=== PATIENT | female | born 1955 | race Asian ===

== ENCOUNTER 2019-09-03 09:49 | Emergency (ER) | payer MEDICAID, OTHER ==
[~2019-09-03] VITALS: Ht 157.5 cm; Wt 59.0 kg
[2019-09-03] MEDS ORDERED: IPRATROPIUM BROM 0.5 MG/2.5ML INH SOL HHN ONE (10:30)
[2019-09-03] MEDS ORDERED: ALBUTEROL SULF 2.5 MG/0.5ML(0.5%) NEB SOLN HHN ONE (10:30)
[2019-09-03 11:37] LABS: Basophils # (auto) 0 uL; Basophils % (auto) 0.4 % (0.0-2.0); Eosinophils # (auto) 0 uL; Hematocrit 30.6 % (36.0-46.0); Hemoglobin 10.8 g/dL (12.2-16.2); Lymphocytes # (auto) 0.4 uL; Lymphocytes % (auto) 8.4 % (10.0-50.0); Mean Corpuscular Hemoglobin 31.9 pg (28.0-32.0); Mean Corpuscular Hgb Conc. 35.3 g/dL (32.0-36.0); Mean Corpuscular Volume 90.1 fL (80.0-100.0); Monocytes # (auto) 0.4 uL; Monocytes % (auto) 8.6 % (0.0-12.0); Neutrophils # (auto) 4.1 uL; Neutrophils % (auto) 82.6 % (37.0-80.0); Platelet Count (auto) 169 10^3/uL (140-450); Red Blood Cells 3.39 10^6/uL (4.0-5.20); Red Cell Distribution Width 12.3 % (11.8-14.3)
[2019-09-03 11:56] LABS: Potassium 3.3 mmol/L (3.5-5.1)
[2019-09-03 12:03] LABS: BUN/Creatinine Ratio 7.6
[2019-09-03 12:04] LABS: Bilirubin, Total 0.4 mg/dL (0.2-1.0); Calcium 8.2 mg/dL (8.5-10.1); Total Protein 7.5 g/dL (6.4-8.2)
[2019-09-03 13:52] VITALS: BP 112/61
== END 2019-09-03 14:54 | disposition home or self-care (01) ==
LOC: ER 09:49 → EDBD 09:49 → ER 14:54
DX: J20.9 Acute bronchitis, unspecified (principal); R19.7 Diarrhea, unspecified; C78.00 Secondary malignant neoplasm of unspecified lung
CPT/HCPCS: 36415; 71045; 80053; 85025; 94640; 99284; J7611; J7644

== ENCOUNTER 2022-01-13 08:47 | Inpatient (IN) | payer MEDICARE, MEDICAID ==
[~2022-01-13] VITALS: Ht 162.6 cm; Wt 87.0 kg
[2022-01-13] MEDS ORDERED: SODIUM CHLORIDE 0.9% 1,000 ML IV ONE ×2 (10:00)
[2022-01-13 10:17] LABS: Basophils # (auto) 0 10 ^3/uL (0-0.2); Basophils % (auto) 0.2 % (0.0-2.0); Eosinophils # (auto) 0 10 ^3/uL (0-0.8); Eosinophils % (auto) 0.2 % (0.0-7.0); Hematocrit 32.4 % (36.0-46.0); Hemoglobin 11.3 g/dL (12.2-16.2); Lymphocytes # (auto) 0.5 10 ^3/uL (0.4-5.4); Lymphocytes % (auto) 11.3 % (10.0-50.0); Mean Corpuscular Hemoglobin 31.5 pg (28.0-32.0); Mean Corpuscular Volume 89.9 fL (80.0-100.0); Monocytes # (auto) 0.4 10 ^3/uL (0-1.3); Monocytes % (auto) 8.1 % (0.0-12.0); Neutrophils # (auto) 3.6 10 ^3/uL (1.6-8.6); Neutrophils % (auto) 80.2 % (37.0-80.0); Red Cell Distribution Width 12.8 % (11.8-14.3); White Blood Cell 4.4 10^3/uL (4.4-10.8)
[2022-01-13 10:40] LABS: Calcium 7.2 mg/dL (8.5-10.1); Potassium 3.3 mmol/L (3.5-5.1)
[2022-01-13 10:43] LABS: BUN/Creatinine Ratio 14.5; Bilirubin, Total 0.4 mg/dL (0.2-1.0); Total Protein 7.2 g/dL (6.4-8.2)
[2022-01-13 11:57] LABS: Urine Bacteria NONE SEEN /hpf (None Seen); Urine Blood Negative /uL (Negative); Urine Mucus FEW (None Seen); Urine Specific Gravity 1.008 (1.001-1.035); Urine WBC 1 /hpf (0 - 5)
[2022-01-13] MEDS ORDERED: cefTRIAXone 1GM/50ML D5W 50 ML IV ONE (12:00)
[2022-01-13] MEDS ORDERED: metroNIDAZOLE 500MG/100ML 100 ML IV ONE (12:00)
[2022-01-13] MEDS ORDERED: ALBUTEROL SULF HFA 90MCG INH 200DOSE IN PRN (13:30)
[2022-01-13] MEDS ORDERED: ACETAMINOPHEN 500 MG TAB PO PRN (13:30)
[2022-01-13] MEDS: SODIUM CHLORIDE 0.9% 1,000 ML IV SCH (13:32)
[2022-01-13 13:34] LABS: INR 1.01 (0.9-1.15)
[2022-01-13 14:14] LABS: Cholesterol 104 mg/dL (< 200); Triglycerides 66 mg/dL (< 150)
[2022-01-13 14:16] LABS: CRP High Sensitivity 0.204 mg/dL (< 0.3); HDL Cholesterol 42 mg/dL (40-59); LDL Cholesterol 60 mg/dL (< 100); Magnesium 1.6 mg/dL (1.6-2.6)
[2022-01-13 14:27] LABS: Thyroid Stimulating Hormone 1.71 uIU/mL (0.358-3.74)
[2022-01-13] MEDS ORDERED: AFAT20TA PO (14:49)
[2022-01-13] MEDS ORDERED: LETR2.5T6 PO (14:50)
[2022-01-13] MEDS ORDERED: POTASSIUM CHLORIDE 20 MEQ, LIDOCAINE 1% (LOCAL ANESTH.) 2 ML in SODIUM CHL 0.9% 100 ML IV ONE (16:15)
[2022-01-13] MEDS ORDERED: MAGNESIUM SULFATE 1GM/100ML 100 ML IV ONE (16:15)
[2022-01-13 17:00] VITALS: BP 156/92
[2022-01-13] MEDS ORDERED: ENTE1TAB12 PO (17:04)
[2022-01-13] MEDS: BARACLUDE PO SCH (21:26)
[2022-01-13] MEDS: metroNIDAZOLE 500MG/100ML 100 ML IV SCH (21:26)
[2022-01-13] MEDS: LETROZOLE 2.5 MG TABLET PO SCH (21:27)
[2022-01-13 22:00] VITALS: BP 145/73
[2022-01-13] MEDS ORDERED: GILOTRIF 40 MG PO SCH (22:00)
[2022-01-14] MEDS: SODIUM CHLORIDE 0.9% 1,000 ML IV SCH ×2 (02:23→15:26)
[2022-01-14 05:00] VITALS: BP 144/89
[2022-01-14] MEDS: metroNIDAZOLE 500MG/100ML 100 ML IV SCH (05:48)
[2022-01-14 06:09] LABS: Basophils # (auto) 0 10 ^3/uL (0-0.2); Basophils % (auto) 0.3 % (0.0-2.0); Eosinophils # (auto) 0 10 ^3/uL (0-0.8); Eosinophils % (auto) 0.1 % (0.0-7.0); Hematocrit 34.5 % (36.0-46.0); Hemoglobin 12.3 g/dL (12.2-16.2); Lymphocytes % (auto) 25.3 % (10.0-50.0); Mean Corpuscular Hemoglobin 31.7 pg (28.0-32.0); Mean Corpuscular Hgb Conc. 35.6 g/dL (32.0-36.0); Mean Corpuscular Volume 89.1 fL (80.0-100.0); Monocytes # (auto) 0.4 10 ^3/uL (0-1.3); Monocytes % (auto) 9.7 % (0.0-12.0); Neutrophils # (auto) 2.5 10 ^3/uL (1.6-8.6); Neutrophils % (auto) 64.6 % (37.0-80.0); Red Blood Cells 3.87 10^6/uL (4.0-5.20); Red Cell Distribution Width 12.8 % (11.8-14.3); White Blood Cell 3.9 10^3/uL (4.4-10.8)
[2022-01-14 06:37] LABS: Albumin 3.2 g/dL (3.4-5.0); Calcium 7.5 mg/dL (8.5-10.1); Potassium 3.5 mmol/L (3.5-5.1)
[2022-01-14 06:42] LABS: BUN/Creatinine Ratio 11.8; Bilirubin, Total 0.3 mg/dL (0.2-1.0); Total Protein 7.5 g/dL (6.4-8.2)
[2022-01-14] MEDS ORDERED: DexAMETHasone SOD PHOS 10MG/1ML VIAL INJ IV SCH (10:00)
[2022-01-14] MEDS ORDERED: ENOXAPARIN SOD 40 MG/0.4 ML SYRINGE SC SCH (10:00)
[2022-01-14] MEDS: AZITHROMYCIN 500MG/ 250ML 250 ML IV SCH (11:05)
[2022-01-14] MEDS: ASCORBIC ACID 1,000 MG TAB PO SCH (11:05)
[2022-01-14] MEDS: CHOLECALCIFEROL (VITD3) 2,000 UNIT CAP/TAB PO SCH (11:05)
[2022-01-14] MEDS ORDERED: PANTOPRAZOLE 40 MG/10 ML VIAL INJ IV ONE (12:15)
[2022-01-14 12:30] VITALS: BP 151/67
[2022-01-14 16:36] VITALS: BP 124/68
[2022-01-14] MEDS: GILOTRIF 40 MG PO SCH (18:14)
[2022-01-14 20:00] VITALS: BP 101/64
[2022-01-14 22:00] VITALS: BP 101/64
[2022-01-14] MEDS: LETROZOLE 2.5 MG TABLET PO SCH (22:09)
[2022-01-14] MEDS: BARACLUDE PO SCH (22:09)
[2022-01-15 05:00] VITALS: BP 139/61
[2022-01-15] MEDS: SODIUM CHLORIDE 0.9% 1,000 ML IV SCH ×2 (05:19→21:43)
[2022-01-15 08:27] LABS: BUN/Creatinine Ratio 10.5; Calcium 7.4 mg/dL (8.5-10.1); Potassium 3.3 mmol/L (3.5-5.1)
[2022-01-15 09:00] VITALS: BP 117/69
[2022-01-15] MEDS ORDERED: PANTOPRAZOLE 40 MG/10 ML VIAL INJ IV SCH (10:00)
[2022-01-15] MEDS: AZITHROMYCIN 500MG/ 250ML 250 ML IV SCH (10:41)
[2022-01-15] MEDS: ASCORBIC ACID 1,000 MG TAB PO SCH (10:41)
[2022-01-15] MEDS: CHOLECALCIFEROL (VITD3) 2,000 UNIT CAP/TAB PO SCH (10:42)
[2022-01-15] MEDS ORDERED: POTASSIUM CHL 20 Meq TABLET PO ONE (12:00)
[2022-01-15] MEDS: levoFLOXacin 500 MG TAB PO SCH (12:50)
[2022-01-15 13:00] VITALS: BP 124/69
[2022-01-15] MEDS: metroNIDAZOLE 500 MG TAB PO SCH ×2 (13:54→21:44)
[2022-01-15 16:48] VITALS: BP 111/55
[2022-01-15] MEDS: GILOTRIF 40 MG PO SCH (17:30)
[2022-01-15] MEDS: BARACLUDE PO SCH (21:44)
[2022-01-15] MEDS: LETROZOLE 2.5 MG TABLET PO SCH (21:44)
[2022-01-15 22:00] VITALS: BP 109/67
[2022-01-16 05:00] VITALS: BP 104/76
[2022-01-16] MEDS: metroNIDAZOLE 500 MG TAB PO SCH (05:48)
[2022-01-16 08:42] LABS: BUN/Creatinine Ratio 8.9; Calcium 7.4 mg/dL (8.5-10.1)
[2022-01-16 08:54] VITALS: BP 122/71
[2022-01-16 08:56] VITALS: BP 129/57
[2022-01-16] MEDS: levoFLOXacin 500 MG TAB PO SCH (09:13)
[2022-01-16] MEDS: ASCORBIC ACID 1,000 MG TAB PO SCH (09:13)
[2022-01-16] MEDS: CHOLECALCIFEROL (VITD3) 2,000 UNIT CAP/TAB PO SCH (09:13)
[2022-01-16] MEDS ORDERED: FLORASTOR (S. BOULARDII) 250 MG CAP PO SCH (10:00)
[2022-01-16] MEDS ORDERED: MET500T PO (10:12)
[2022-01-16] MEDS ORDERED: LEVO-28 PO (10:12)
== END 2022-01-16 11:54 | disposition home or self-care (01) | DRG 391 ==
LOC: EDBD 08:47 → ER 08:47 → EAST 13:22
PROVIDERS: ADMIT Registered Nurse; ATTEND Internal Medicine
DX: K52.9 Noninfective gastroenteritis and colitis, unspecified (principal); U07.1 COVID-19; C34.90 Malignant neoplasm of unspecified part of unspecified bronchus or lung; E87.1 Hypo-osmolality and hyponatremia; I12.9 Hypertensive chronic kidney disease with stage 1 through stage 4 chronic kidney disease, or unspecified chronic kidney disease; D64.9 Anemia, unspecified; N18.2 Chronic kidney disease, stage 2 (mild); E87.6 Hypokalemia; E86.0 Dehydration; Z85.118 Personal history of other malignant neoplasm of bronchus and lung; Z85.3 Personal history of malignant neoplasm of breast; Z90.12 Acquired absence of left breast and nipple; Z91.041 Radiographic dye allergy status; Z86.19 Personal history of other infectious and parasitic diseases
CPT/HCPCS: 36415; 71045; 74176; 80048; 80053; 80061; 81001; 82306; 82728; 83036; 83605; 83615; 83735; 84443; 84484; 85025; 85379; 85610; 86141; 87040; 87045; 87427; 87493; 93005; 96361; 96365; C9113; G0378; J0696; J1100; J2001; J3490

== ENCOUNTER 2024-09-15 17:59 | Inpatient (IN) | payer MEDICARE, MEDICAID ==
[~2024-09-15] VITALS: Ht 162.6 cm; Wt 59.7 kg
[~2024-09-15 17:59] MED LIST: AFAT20TA PO; ENTE1TAB12 PO; LETR2.5T6 PO; LEVO500T91 PO; MET500T PO
--- NOTE | 2024-09-15 21:13 | DVH ---
CHEST RADIOGRAPH Indication: COUGH Technique: Single frontal view of the chest was obtained Comparison: CHEST PORTABLE on DOS: 01/13/22, CXRP on DOS: 01/13/22 FINDINGS: Lines and Tubes: Right IJ approach port-A-Cath terminating over the superior cavoatrial junction /. Lungs: Elevated right hemidiaphragm with right basilar opacity. Minimal interstitial prominence. No pneumothorax. Cardiomediastinal contours: Unremarkable Bones: No acute osseous abnormality. Surgical clips are noted over the left axilla. IMPRESSION: Elevated right hemidiaphragm with right basilar pneumonia / atelectasis. Mild pulmonary vascular congestion. Right IJ approach port-A-Cath terminating over the superior cavoatrial junction.
[2024-09-15 21:15] VITALS: RESP 18; O2SAT 98
[2024-09-15] MEDS ORDERED: AZITHROMYCIN 500MG/ 250ML 250 ML IV ONE (21:45)
--- NOTE | 2024-09-15 21:53 | ED.PDOC ---
SOB-HPI HPI Comments 69-year-old female presents to ER with complaints of cough x 4 days. Patient is primarily Cuban speaking, presenting to ER VIA EMS reporting that she has been experiencing productive cough with yellow phlegm, generalized weakness and runny nose x 4 days with associated n/v x 1 day. States that she took an at home COVID test today that came back positive. Denies any current pain. Patient presents to ER ambulatory on arrival, with steady gait, alert and oriented x4, in no distress. Denies fever, shortness of breath, chest pain, hemoptysis, sore throat, headache, dizziness, abdominal pain, headache, dizziness, confusion, changes in urination/bm or any further symptoms/complaints Chief Complaint: Flu like Time Seen by MD: 18:16 Primary Care Provider: SARA Reviewed notes: Nurses Notes, Medications, Allergies Information Source: Patient Mode of Arrival: EMS Past Medical History PAST MEDICAL HISTORY: Cancer (left breast cancer, right lung cancer- patient currently on oral chemotherapy), Hypotension, Liver Surgical History (Other): Mastectomy- left Partial right sided lobectomy Right-sided Port-A-Cath CHILD PSYCHOMETRIST History: Denies all CHILD PSYCHOMETRIST Hx Family History Family History: Family hx of Cancer, Family hx of liver gomez Social History Smoker: Non-Smoker Alcohol: Denies ETOH Use Drugs: Denies Drug Use Lives In: Home Constitutional: reports: others (As stated in HPI) EENTM: reports: others (As stated in HPI) Respiratory: reports: others (As stated in HPI) Cardiovascular: denies: chest pain, dizzy spells, diaphoresis, Dyspnea on exertion, edema, irregular heart beat, left arm pain, lightheadedness, palpitations, PND, syncope, others Gastrointestinal: denies: abdomen distended, abdominal pain, blood streaked bowels, constipated, diarrhea, dysphagia, difficulty swallowing, hematemesis, melena, nausea, poor appetite, poor fluid intake, rectal bleeding, rectal pain, vomiting, others Genitourinary: denies: abnormal vagina bleeding, burning, dyspareunia, dysuria, flank pain, frequency, hematuria, incontinence, pain, , vagina discharge, urgency, others Neurological: denies: dizziness, fainting, headache, left sided numbness, left sided weakness, numbness, paresthesia, pre-existing deficit, right sided numbness, right sided weakness, seizure, speech problems, tingling, tremors, weakness, others Musculoskeletal: denies: back pain, gout, joint pain, joint swelling, muscle pain, muscle stiffness, neck pain, others Integumetry: denies: bruises, change in color, change in hair/nails, dryness, laceration, lesions, lumps, rash, wounds, others Allergic/Immunocompromised: denies: Difficulty Healing, Frequent Infections, Hives, Itching, others Hematologic/Lymphatic: denies: anemia, blood clots, easy bleeding, easy bruising, swollen glands, others Endocrine: denies: excessive hunger, excessive sweating, excessive thirst, excessive urination, flushing, intolerance to cold, intolerance to heat, unexplained weight gain, unexplained weight loss, others Psychiatric: denies: anxiety, bipolar disorder, depression, hopeless, panic disorder, schizophrenia, sleepless, suicidal, others Physical Exam General Appearance: No Apparent Distress HEENT: Normal ENT Inspection, PERRL/EOMI, Pharynx Normal, TMs Normal Neck: Full Range of Motion, Non-Tender, Normal Respiratory: Chest Non-Tender, Lungs Clear, No Accessory Muscle Use, No Respiratory Distress, Normal Breath Sounds Cardiovascular: No Murmur, No Gallop, Regular Rate/Rhythm Breast Exam: Deferred Gastrointestinal: Non Tender, No Pulsatile Mass, Soft Genitalia: Deferred Pelvic: Deferred Rectal: Deferred Extremities: Normal capillary refill, Normal range of motion Neurologic: Alert, clinical care coordinator II-XII nml as Tested, No Motor Deficits, Normal Affect, Normal Mood, No Sensory Deficits Cerebellar Function: Normal Reflexes: Normal Skin: Dry, Normal Color, Warm Peripheral Pulses: 2+ Radial (R), 2+ Radial (L), 2+ Brachial (R), 2+ Brachial (L) Lymphatic: No Adenopathy EKG EKG : Pulse Rate (adult): 90 Cardiac Rhythm: NSR (SR) Was a procedure done? Was a procedure done?: No Sedation Sedation?: No Differential Dx Differential Diagnosis: Pulmonary Embolism, Respiratory Distress, URI X-Ray, Labs, Meds, VS Vital Signs Date Time Temp Pulse Resp B/P (MAP) Pulse Ox O2 Delivery O2 Flow Rate FiO2 09/15/24 22:23 90 09/15/24 22:15 90 09/15/24 21:36 76 09/15/24 21:15 98.8 82 18 131/83 (99) 98 98.8 09/15/24 21:15 18 98 Room Air* 0 21 09/15/24 18:01 98.6 84 16 131/83 (99) 96 Lab Test 09/15/24 23:23 09/15/24 21:45 09/15/24 21:30 Range/Units Prothrombin Time 10.3 9.3-11.8 sec Prothrombin Time INR 0.97 0.9-1.15 Activated Partial Thromboplast Time 27.6 24.5-34.5 SEC D-Dimer, Quantitative 0.77 H 0.0-0.49 mg/L FEU White Blood Count 2.4 L 4.4-10.8 10^3/uL Red Blood Count 3.73 L 4.0-5.20 10^6/uL Hemoglobin 11.7 L 12.2-16.2 g/dL Hematocrit 34.9 L 36.0-46.0 % Mean Corpuscular Volume 93.5 80.0-100.0 fL Mean Corpuscular Hemoglobin 31.3 28.0-32.0 pg Mean Corpuscular Hemoglobin Concent 33.4 32.0-36.0 g/dL Red Cell Distribution Width 12.8 11.8-14.3 % Platelet Count 119 L 140-450 10^3/uL Mean Platelet Volume 6.9 6.9-10.8 fL Neutrophils (%) (Auto) 76.8 37.0-80.0 % Lymphocytes (%) (Auto) 14.2 10.0-50.0 % Monocytes (%) (Auto) 8.6 0.0-12.0 % Eosinophils (%) (Auto) 0.1 0.0-7.0 % Basophils (%) (Auto) 0.3 0.0-2.0 % Neutrophils # (Auto) 1.8 1.6-8.6 10 ^3/uL Lymphocytes # (Auto) 0.3 L 0.4-5.4 10 ^3/uL Monocytes # (Auto) 0.2 0-1.3 10 ^3/uL Eosinophils # (Auto) 0 0-0.8 10 ^3/uL Basophils # (Auto) 0 0-0.2 10 ^3/uL Nucleated Red Blood Cells 0.1 % Sodium Level 115 *L 136-145 mmol/L Potassium Level 4.1 3.5-5.1 mmol/L Chloride Level 87 L 98-107 mmol/L Carbon Dioxide Level 23 20-31 mmol/L Anion Gap 5 5-15 Blood Urea Nitrogen 7 L 9-23 mg/dL Creatinine 0.67 0.550-1.02 mg/dL Glomerular Filtration Rate Calc 95 >90 mL/min BUN/Creatinine Ratio 10.4 10.0-20.0 Serum Glucose 113 H 74-106 mg/dL Lactic Acid Level 0.7 0.4-2.0 mmol/L Calcium Level 8.8 8.7-10.4 mg/dL Troponin I High Sensitivity 3 L </=34 ng/L C-Reactive Protein High Sensitivity 0.17 <1.0 mg/dL B-Type Natriuretic Peptide 100.30 0-100 pg/mL Thyroid Stimulating Hormone (TSH) 1.46 0.55-4.78 uIU/mL Influenza Type A Antigen Negative Negative Influenza Type B Antigen Negative Negative SARS-CoV-2 Antigen (Rapid) Positive NEGATIVE Current Medications Medications (Trade) Dose Ordered Sig/Amrit Route Start Time Stop Time Status Last Admin Ceftriaxone Sodium 50 ml @ 100 mls/hr ONCE ONCE IV 09/15/24 21:45 09/15/24 22:14 DC 09/15/24 22:58 Doxycycline Hyclate 100 ml @ 50 mls/hr ONCE ONCE IV 09/15/24 22:30 09/16/24 00:29 DC 09/15/24 23:00 Sodium Chloride 500 ml @ 50 mls/hr ONCE ONCE IV 09/15/24 23:30 09/16/24 09:29 09/16/24 00:00 PATIENT: LAURE BARTLETT ACCT: [id number] UNIT: [id number] : 1955 LOC: ER ROOM / BED: / AGE / SEX: 69 / F ADM STATUS: REG ER SERVICE 25 ORDERING PHYSICIAN: KASSANDRA NAVARRO PROCEDURE(s): CXR1 - CHEST XRAY 1 VIEW REASON: COUGH ORDER NUMBER(s): [id number], ACCESSION NUMBER(s): [id number] CHEST RADIOGRAPH Indication: COUGH Technique: Single frontal view of the chest was obtained Comparison: CHEST PORTABLE on DOS: 01/13/22, CXRP on DOS: 01/13/22 FINDINGS: Lines and Tubes: Right IJ approach port-A-Cath terminating over the superior cavoatrial junction /. Lungs: Elevated right hemidiaphragm with right basilar opacity. Minimal interstitial prominence. No pneumothorax. Cardiomediastinal contours: Unremarkable Bones: No acute osseous abnormality. Surgical clips are noted over the left axilla. IMPRESSION: Elevated right hemidiaphragm with right basilar pneumonia / atelectasis. Mild pulmonary vascular congestion. Right IJ approach port-A-Cath terminating over the superior cavoatrial junction. ATED BY: STEPHANIE CLEMENS DO DICTATED DATE/TIME: 09/15/242110 SIGNED BY: STEPHANIE CLEMENS DO SIGNED DATE/TIME: 09/15/242110 CC: Chest x-ray reviewed Swab results reviewed-LORIN positive CBC reviewed - WBC 2.4, hemoglobin 11.7, platelet count 117 BMP reviewed - sodium 115 Troponin ordered BNP reviewed Lactic acid reviewed - normal Blood cultures ordered EKG reviewed Hep-Lock IV ordered Rocephin 1 g IV ordered Doxycycline 100 mg IV ordered NS 3% IV ordered Patient resting comfortably at bedside, alert and oriented x4, in no distress Patient admitted to hospitalist for COVID-19 pneumonia / hyponatremia Images Reviewed?: Images reviewed and evaluated by me Time of 1ST Reevaluation: 21:50 Reevaluation 1ST: N/A Patient Education/Counseling: Diagnosis, Treatment, Prognosis, Need For Follow Up Family Education/Counseling: No Family Present Departure 1 Departure Time of Disposition: 22:12 Impression: Primary Impression: Pneumonia due to COVID-19 virus Additional Impressions: Thrombocytopenia Neutropenia Qualified Codes: D70.1 - Agranulocytosis secondary to cancer chemotherapy; T45.1X5A - Adverse effect of antineoplastic and immunosuppressive drugs, initial encounter Hyponatremia Disposition: ADMITTED INPATIENT Condition: Fair Critical Care Note Critical Care Time?: No Stability Stability form required: No Heart Score Heart Score: Heart Score Response (Comments) Value History N/A 0 EKG N/A 0 Age N/A 0 Risk Factors N/A 0 Troponin N/A 0 Total 0 KASSANDRA NAVARRO Sep 15, 2024 21:53
[2024-09-15 22:00] LABS: Basophils # (auto) 0 10 ^3/uL (0-0.2); Basophils % (auto) 0.3 % (0.0-2.0); Eosinophils # (auto) 0 10 ^3/uL (0-0.8); Eosinophils % (auto) 0.1 % (0.0-7.0); Hematocrit 34.9 % (36.0-46.0); Hemoglobin 11.7 g/dL (12.2-16.2); Lymphocytes # (auto) 0.3 10 ^3/uL (0.4-5.4); Lymphocytes % (auto) 14.2 % (10.0-50.0); Mean Corpuscular Hemoglobin 31.3 pg (28.0-32.0); Mean Corpuscular Hgb Conc. 33.4 g/dL (32.0-36.0); Mean Corpuscular Volume 93.5 fL (80.0-100.0); Monocytes # (auto) 0.2 10 ^3/uL (0-1.3); Monocytes % (auto) 8.6 % (0.0-12.0); Neutrophils # (auto) 1.8 10 ^3/uL (1.6-8.6); Neutrophils % (auto) 76.8 % (37.0-80.0); Nucleated Red Blood Cells % 0.1 %; Platelet Count (auto) 119 10^3/uL (140-450); Red Blood Cells 3.73 10^6/uL (4.0-5.20); Red Cell Distribution Width 12.8 % (11.8-14.3); White Blood Cell 2.4 10^3/uL (4.4-10.8)
[2024-09-15 22:09] LABS: Potassium 4.1 mmol/L (3.5-5.1)
[2024-09-15 22:10] LABS: Anion Gap 5 (5-15); Calcium 8.8 mg/dL (8.7-10.4); Carbon Dioxide 23 mmol/L (20-31)
[2024-09-15 22:15] LABS: BUN/Creatinine Ratio 10.4 (10.0-20.0)
[2024-09-15 22:54] LABS: Rapid Influenza A Negative (Negative); Rapid Influenza B Negative (Negative)
[2024-09-15 22:56] LABS: COVID19 ANTIGEN SOFIA FIA POSITIVE (NEGATIVE)
[2024-09-15] MEDS: cefTRIAXone 1GM/50ML D5W 50 ML IV ONE (22:58)
[2024-09-15] MEDS: DOXYCYCLINE 100MG/100ML 100 ML IV ONE (23:00)
[2024-09-15 23:15] LABS: Blood Urea Nitrogen 7 mg/dL (9-23); Chloride 87 mmol/L (98-107); Glucose 113 mg/dL (74-106); Sodium 115 mmol/L (136-145)
[2024-09-15 23:50] LABS: INR 0.97 (0.9-1.15); Partial Thromboplastin Time 27.6 SEC (24.5-34.5); Prothrombin Time 10.3 sec (9.3-11.8)
[2024-09-16] MEDS: SODIUM CHL 3% 500 ML IV ONE
[2024-09-16] MEDS ORDERED: MORPHINE SULFATE INJ 2 MG/ml SYRG IV PRN
[2024-09-16] MEDS ORDERED: NITROGLYCERIN 0.4 MG SL TAB SL PRN
[2024-09-16] MEDS ORDERED: ACETAMINOPHEN 325 MG TAB PO PRN (00:15)
[2024-09-16] MEDS ORDERED: ONDANSETRON HCL 4 MG/2 ML VIAL IV PRN (00:15)
[2024-09-16] MEDS ORDERED: TEMAZEPAM 15 MG CAP PO PRN (00:15)
[2024-09-16] MEDS ORDERED: ALBUTEROL SULF 2.5 MG/0.5ML(0.5%) NEB SOLN NEB PRN (00:15)
--- NOTE | 2024-09-16 00:20 | ECG ---
[facility] Test Date: 2024-09-15 Test Time: 22:11:40 Pat Name: LAURE BARTLETT Department: ER Room: 0236T Gender: F Leasing Machine Tender: CRISTAL : 1955 Requested By: KASSANDRA NAVARRO Order Number: [id number] Reading MD: Julian Lanier Measurements Intervals [place] Rate: 90 P: 65 WI: 232 QRS: 27 QRSD: 81 T: 61 QT: 399 QTc: 489 Interpretive Statements Sinus rhythm Prolonged WI interval Minimal ST elevation, inferior leads Borderline prolonged QT interval Baseline wander in lead(s) I,II,aVR Electronically Signed On 09-17-2024 17:08:47 PST by Julian Lanier Please click the below link to view image of tracing.
[2024-09-16 00:25] VITALS: PULSE 82; RESP 12; O2SAT 98
[2024-09-16 00:55] VITALS: BP 114/94; PULSE 86; RESP 20; O2SAT 93
--- NOTE | 2024-09-16 04:40 | DVHHP2 ---
History of Present Illness Reason for Visit: Cough History of Present Illness 69-year-old female presents for evaluation of a persistent cough. Patient reports a four day history of having a productive cough with yellow phlegm with associated body aches, generalized weakness mild shortness for breath. Patient tested herself for COVID yesterday and was positive. Denies chest pain or palpitations. No fever. No other acute complaints reported. Past Medical History Lung cancer liver disease Past Surgical History Left mastectomy, partial lumpectomy Family History Liver disease, cancer Smoke: No ALCOHOL: none Drugs: None Lives: with Family Review of Systems Review of Systems Review of systems are currently negative otherwise addressed in HPI Allergies: Coded Allergies: Iodine (Verified Allergy, Unknown, 01/13/22) Medications Current Medications Medications Dose Ordered Sig/Amrit Route Start Time Stop Time Status Last Admin Dose Admin Nitroglycerin 0.4 mg Q5MINP PRN SL 09/16/24 00:00 Morphine Sulfate 2 mg Q30M PRN IV 09/16/24 00:00 Ceftriaxone Sodium 50 ml @ 100 mls/hr Q24H IV 09/16/24 23:00 Azithromycin 250 ml @ 125 mls/hr DAILY IV 09/16/24 10:00 Albuterol 2.5 mg Q6HPRN PRN NEB 09/16/24 00:15 Temazepam 15 mg QHSP PRN PO 09/16/24 00:15 Ondansetron HCl 4 mg Q4HP PRN IV 09/16/24 00:15 Enoxaparin Sodium 40 mg DAILY SC 09/16/24 10:00 Acetaminophen 650 mg Q6HP PRN PO 09/16/24 00:15 Exam Vital Signs Vital Signs Date Time Temp Pulse Resp B/P (MAP) Pulse Ox O2 Delivery O2 Flow Rate FiO2 09/16/24 04:25 98.4 89 17 112/68 (83) 92 98.4 09/16/24 00:25 Room Air* 0 21 Exam Gen: 69-year-old female distress. Skin: Warm, dry, normal color and texture, no rash. HEENT: Normocephalic atraumatic, mucous membranes moist and pink. Neck: Cervical and supraclavicular nodes normal without enlargement, trachea is midline, thyroid gland is normal without masses. Pulmonary: Diminished breath sounds Cardiac: Regular rate and rhythm. No murmur Abdomen: Soft, nontender, nondistended, bowel sounds present all 4 quadrants, no guarding, no rigidity, no organomegaly. Extremities: No cyanosis, clubbing, no edema Neuro: Cranial nerves II through XII grossly intact, normal affect and speech, no focal motor deficits. Labs/Xrays ORDERING PHYSICIAN: KASSANDRA NAVARRO PROCEDURE(s): CXR1 - CHEST XRAY 1 VIEW REASON: COUGH ORDER NUMBER(s): [id number], ACCESSION NUMBER(s): [id number] CHEST RADIOGRAPH Indication: COUGH Technique: Single frontal view of the chest was obtained Comparison: CHEST PORTABLE on DOS: 01/13/22, CXRP on DOS: 01/13/22 FINDINGS: Lines and Tubes: Right IJ approach port-A-Cath terminating over the superior cavoatrial junction /. Lungs: Elevated right hemidiaphragm with right basilar opacity. Minimal interstitial prominence. No pneumothorax. Cardiomediastinal contours: Unremarkable Bones: No acute osseous abnormality. Surgical clips are noted over the left axilla. IMPRESSION: Elevated right hemidiaphragm with right basilar pneumonia / atelectasis. Mild pulmonary vascular congestion. Right IJ approach port-A-Cath terminating over the superior cavoatrial junction. Labs Test 09/16/24 04:00 09/15/24 23:23 09/15/24 21:45 09/15/24 21:30 Range/Units Prothrombin Time 10.3 9.3-11.8 sec Prothrombin Time INR 0.97 0.9-1.15 Activated Partial Thromboplast Time 27.6 24.5-34.5 SEC D-Dimer, Quantitative 0.77 H 0.0-0.49 mg/L FEU White Blood Count 2.4 L 4.4-10.8 10^3/uL Red Blood Count 3.73 L 4.0-5.20 10^6/uL Hemoglobin 11.7 L 12.2-16.2 g/dL Hematocrit 34.9 L 36.0-46.0 % Mean Corpuscular Volume 93.5 80.0-100.0 fL Mean Corpuscular Hemoglobin 31.3 28.0-32.0 pg Mean Corpuscular Hemoglobin Concent 33.4 32.0-36.0 g/dL Red Cell Distribution Width 12.8 11.8-14.3 % Platelet Count 119 L 140-450 10^3/uL Mean Platelet Volume 6.9 6.9-10.8 fL Neutrophils (%) (Auto) 76.8 37.0-80.0 % Lymphocytes (%) (Auto) 14.2 10.0-50.0 % Monocytes (%) (Auto) 8.6 0.0-12.0 % Eosinophils (%) (Auto) 0.1 0.0-7.0 % Basophils (%) (Auto) 0.3 0.0-2.0 % Neutrophils # (Auto) 1.8 1.6-8.6 10 ^3/uL Lymphocytes # (Auto) 0.3 L 0.4-5.4 10 ^3/uL Monocytes # (Auto) 0.2 0-1.3 10 ^3/uL Eosinophils # (Auto) 0 0-0.8 10 ^3/uL Basophils # (Auto) 0 0-0.2 10 ^3/uL Nucleated Red Blood Cells 0.1 % Sodium Level 115 *L 136-145 mmol/L Potassium Level 4.1 3.5-5.1 mmol/L Chloride Level 87 L 98-107 mmol/L Carbon Dioxide Level 23 20-31 mmol/L Anion Gap 5 5-15 Blood Urea Nitrogen 7 L 9-23 mg/dL Creatinine 0.67 0.550-1.02 mg/dL Glomerular Filtration Rate Calc 95 >90 mL/min BUN/Creatinine Ratio 10.4 10.0-20.0 Serum Glucose 113 H 74-106 mg/dL Lactic Acid Level 0.7 0.4-2.0 mmol/L Calcium Level 8.8 8.7-10.4 mg/dL Troponin I High Sensitivity 3 L </=34 ng/L C-Reactive Protein High Sensitivity 0.17 <1.0 mg/dL B-Type Natriuretic Peptide 100.30 0-100 pg/mL Thyroid Stimulating Hormone (TSH) 1.46 0.55-4.78 uIU/mL Influenza Type A Antigen Negative Negative Influenza Type B Antigen Negative Negative SARS-CoV-2 Antigen (Rapid) Positive NEGATIVE Assessment/Plan Assessment/Plan Assessment Community-acquired pneumonia secondary to COVID-19 Hyponatremia Pancytopenia History of lung cancer undergoing chemotherapy Plan The patient to telemetry to the hospitalist KALYANID-19 protocol 500 cc of 3% normal saline with q.6 hours sodium checks Continue treatment per orders Plan discussed with: Patient My Orders Orders - DOMINIQUE MACHADO AGACNP Procedure Category Date Status Time Admit ADMIT 09/15/24 Transmitted 23:55 Nitroglycerin PHA 09/16/24 In Process Sublingual (Ntrostat 00:00 Morphine Sulfate PHA 09/16/24 In Process Injection 00:00 Stat Ekg For Chest YECENIA 09/15/24 In Process Pain 23:55 Notify Of Changes YECENIA 09/15/24 In Process From Base 23:55 Simulation Engineer For YECENIA 09/15/24 In Process 24 Hours 23:55 Emergency Dysrhythmia YECENIA 09/15/24 In Process Protocol 23:55 Rhythm Strips Once YECENIA 09/15/24 In Process Every Shift 23:55 Oxygen By Nasal RT 09/15/24 Transmitted Cannula 23:55 Isolation Order ORDERS 09/16/24 Transmitted 00:08 Precautions YECENIA 09/16/24 In Process (Contact,Droplets, 00:08 Complete Blood Count LAB 09/17/24 Verified 05:30 Comprehensive LAB 09/17/24 Verified Metabolic Panel 05:30 Complete Blood Count LAB 09/20/24 Verified 05:30 Comprehensive LAB 09/20/24 Verified Metabolic Panel 05:30 Lactate Dehydrogenase LAB 09/20/24 Verified 05:30 Chest Portable XY 09/17/24 Logged 07:00 Chest Portable XY 09/20/24 Logged 07:00 Oob To Chair YECENIA 09/16/24 In Process 00:08 Incentive Spirometry ORDERS 09/16/24 Transmitted Q 1hr 00:08 Urinalysis LAB 09/16/24 In Process 00:08 Simulation Engineer ORDERS 09/16/24 Transmitted 00:08 Sodium LAB 09/17/24 Verified 12:00 Sodium LAB 09/17/24 Verified 18:00 Ceftriaxone 1gm/50ml PHA 09/16/24 In Process D5w (Rocephin) 23:00 Azithromycin 500mg/ PHA 09/16/24 In Process 250ml (Zithromax 50 10:00 Albuterol Medneb PHA 09/16/24 In Process (Ventolin Medneb) 00:15 Temazepam (Restoril) PHA 09/16/24 In Process 00:15 Ondansetron Hcl PHA 09/16/24 In Process (Zofran) 00:15 Enoxaparin Sodium PHA 09/16/24 In Process (Lovenox) 10:00 Cardiac DIET 09/16/24 Transmitted Diet-2gna,Lofat,Lochol Breakfast Condition: Fair YECENIA 09/16/24 In Process 00:08 Acetaminophen Tablet PHA 09/16/24 In Process (Tylenol Tablet) 00:15 Bedrest With Bathroom YECENIA 09/16/24 In Process Privileg 00:08 Sodium LAB 09/16/24 Verified 04:35 Date of Service: Sep 15, 2024 Billing Provider: DOMINIQUE MACHADO Common Visit Codes: [id number] INP/OBS CARE (HIGH) DOMINIQUE MACHADO Sep 16, 2024 04:40
[2024-09-16 04:44] LABS: Urine Bacteria FEW /hpf (None Seen); Urine Blood Negative /uL (Negative); Urine Clarity Clear (Clear); Urine Color Light-Yellow (Yellow); Urine Mucus FEW (None Seen); Urine Protein, UAD Negative (Negative); Urine Specific Gravity 1.011 (1.001-1.035); Urine Squamous Epithelial Cell None Seen /hpf (<5); Urine Urobilinogen Normal (Negative); Urine WBC < 1 /HPF (0-5)
[2024-09-16 07:05] VITALS: O2SAT 93
[2024-09-16] MEDS: ENOXAPARIN SOD 40 MG/0.4 ML SYRINGE SC SCH (10:07)
[2024-09-16] MEDS: AZITHROMYCIN 500MG/ 250ML 250 ML IV SCH (10:07)
--- NOTE | 2024-09-16 13:26 | DVHPN2 ---
Reviewed: Care Plan, H&P, Labs, Medications, Previous Orders, Radiology Changes from previous H/P or p: No Changes Objective Vitals Vital Signs Date Time Temp Pulse Resp B/P (MAP) Pulse Ox O2 Delivery O2 Flow Rate FiO2 09/16/24 13:08 88 15 108/63 (78) 95 09/16/24 06:51 98.4 98.4 09/16/24 00:25 Room Air* 0 21 Intake/Output Intake and Output 09/16/24 07:00 Intake Total 500 ml Balance 500 ml Intake IV Total 500 ml Medications Current Medications Medications Dose Ordered Sig/Amrit Route Start Time Stop Time Status Last Admin Dose Admin Nitroglycerin 0.4 mg Q5MINP PRN SL 09/16/24 00:00 Morphine Sulfate 2 mg Q30M PRN IV 09/16/24 00:00 Ceftriaxone Sodium 50 ml @ 100 mls/hr Q24H IV 09/16/24 23:00 Azithromycin 250 ml @ 125 mls/hr DAILY IV 09/16/24 10:00 09/16/24 10:07 125 MLS/HR Albuterol 2.5 mg Q6HPRN PRN NEB 09/16/24 00:15 Temazepam 15 mg QHSP PRN PO 09/16/24 00:15 Ondansetron HCl 4 mg Q4HP PRN IV 09/16/24 00:15 Enoxaparin Sodium 40 mg DAILY SC 09/16/24 10:00 09/16/24 10:07 40 MG Acetaminophen 650 mg Q6HP PRN PO 09/16/24 00:15 Laboratory Results Laboratory Tests 09/15/24 21:45 09/16/24 05:36 Chemistry Test 09/15/24 21:45 Calcium Level 8.8 mg/dL (8.7-10.4) Coagulation Test 09/15/24 23:23 Prothrombin Time 10.3 sec (9.3-11.8) Prothrombin Time INR 0.97 (0.9-1.15) Activated Partial Thromboplast Time 27.6 SEC (24.5-34.5) D-Dimer, Quantitative 0.77 mg/L FEU (0.0-0.49) H Cardiac Markers Test 09/15/24 21:45 B-Type Natriuretic Peptide 100.30 pg/mL (0-100) HgA1c, TSH Test 09/15/24 21:45 Thyroid Stimulating Hormone (TSH) 1.46 uIU/mL (0.55-4.78) Urinalysis Test 09/16/24 04:00 Urine Color Light-yellow (Yellow) Urine Clarity Clear (Clear) Urine pH 6.0 (5.0-9.0) Urine Specific [place] 1.011 (1.001-1.035) Urine Protein Negative (Negative) Urine Ketones 1+ (Negative) H Urine Blood Negative /uL (Negative) Urine Nitrite Negative (Negative) Urine Bilirubin Negative (Negative) Urine Urobilinogen Normal mg/dL (Negative) Urine Leukocyte Esterase Negative /uL (Negative) Urine RBC 1 /hpf (0 - 4) Urine Microscopic WBC < 1 /HPF (0-5) Urine Squamous Epithelial Cells None seen /hpf (<5) Urine Bacteria Few /hpf (None Seen) H Urine Mucus Few (None Seen) Urine Glucose Normal mg/dL (Normal) Labs and/or images reviewed: Labs reviewed by me, Image(s) reviewed by me Assessment/Plan Assessment/Plan Acute hypoxic respiratory failure: Oxygen by nasal cannula COVID positive pneumonia Right lower lobe pneumonia: Rocephin azithromycin History of lung cancer on chemotherapy History of left mastectomy Slightly elevated D-dimer 0.77 Severe hyponatremia sodium 115 rule out SIADH: Consult for Dr. Garzon Time spent 65 minutes Patient is full code Advanced care planning time 20 mts Prognosis poor Plan discussed with: Patient My Orders Orders - LEATHA OLIVERA MD Procedure Category Date Status Time *[facility] CONS 09/16/24 Verified -[place] 13:21 Date of Service: Sep 16, 2024 Billing Provider: LEATHA OLIVERA MD Common Visit Codes: [id number] CARE 30-74 MIN LEATHA OLIVERA MD Sep 16, 2024 13:26
[2024-09-16] MEDS ORDERED: CELE100C82 PO (14:02)
[2024-09-16] MEDS ORDERED: ROPI6TAB2 PO (14:02)
[2024-09-16] MEDS ORDERED: GABA300T4 PO (14:02)
[2024-09-16] MEDS ORDERED: TIZA4CAP PO (14:02)
[2024-09-16] MEDS ORDERED: TOPI25TA43 PO (14:02)
[2024-09-16] MEDS: ZINC SULFATE 220mg CAP or TAB PO ONE (14:14)
[2024-09-16] MEDS: CHOLECALCIFEROL (VITD3) 1,000UNIT=25mCg TAB PO ONE (14:15)
--- NOTE | 2024-09-16 17:32 | DVHINCON2 ---
Date of service: Sep 16, [address] Zuniga Reason for Consultation Hyponatremia History of Present Illness Patient is 69-year-old female with past medical history significant for left breast cancer, right lung cancer- patient currently on oral chemotherapy, Hypotension, and Liver Disease is admitted for four day history of cough and production of yellow sputum, generalized weakness associated with nausea or vomiting. On admission patient found to have sodium was 115 patient received 3% sodium chloride in the ER total 500 mL as 50 mL/hour for 10 hours and nephrology is consulted to help for management of hyponatremia. [place]ian parachutist/combatant diver qualified with patient's sister who helped to translate Past Medical History Cancer (left breast cancer, right lung cancer- patient currently on oral chemotherapy), Hypotension, Liver Disease Past Surgical History Mastectomy- left Partial right sided lobectomy Right-sided Port-A-Cath Allergies: Coded Allergies: Iodine (Verified Allergy, Unknown, 01/13/22) Home Meds Active Scripts Metronidazole (Metronidazole) 500 Mg Tab, 500 MG PO TID for 7 Days, #21 TAB Prov:DOMINIQUE JAMISON MD 01/16/22 Levofloxacin Hemihydrate (LEVOFLOXACIN) 500 Mg Tab, 500 MG PO DAILY for 7 Days, #7 TAB Prov:DOMINIQUE JAMISON MD 01/16/22 Reported Medications Famotidine (PEPCID TABLET) 20 Mg Tb, 1 TAB PO DAILY, #60 TAB 5 Refills 09/16/24 Patients Own Medication (PATIENTS OWN MEDICATION) ., 80 MG PO DAILY PTS OWN MED-OBTAIN FROM PT AND SEND TO RX DRUG:TAGRISSO 80 MG PO 1 TAB FREQ: DAILY RX# EXP: DATE DISP: TECH: RP: 09/16/24 Gabapentin (Once-Daily) (Gabapentin) 300 Mg Tab, 300 MG PO BID for NERVE PAIN, TAB 09/16/24 Tizanidine Hydrochloride (Zanaflex) 4 Mg Cap, 1 CAP PO TID, #90 CAP 09/16/24 Topiramate (Topamax) 25 Mg Tab, 1 TAB PO BID, #60 TAB 2 Refills 09/16/24 Ropinirole Hydrochloride (ROPINIROLE ER) 6 Mg Tab, 6 MG PO, TAB 09/16/24 Celecoxib (Celebrex) 100 Mg Cap, 100 MG PO Q12HR, MG 09/16/24 Entecavir Monohydrate (Entecavir) 0.5 Mg Tab, 0.5 MG PO HS, TAB 01/13/22 Letrozole (LETROZOLE) 2.5 Mg Tab, 2.5 MG PO HS for breast CA, TAB 01/13/22 Afatinib Dimaleate (GILOTRIF) 20 Mg Tab, 40 MG PO HS for lung CA, TAB 01/13/22 Current Medications Current Medications Medications (Trade) Dose Ordered Sig/Amrit Route PRN Reason Start Time Stop Time Status Last Admin Ceftriaxone Sodium 50 ml @ 100 mls/hr Q24H IV 09/16/24 23:00 09/16/24 22:53 Zinc Sulfate 220 mg DAILY PO 09/17/24 10:00 09/17/24 11:52 Ascorbic Acid (Vitamin C Tablet) 500 mg BID PO 09/16/24 22:00 09/17/24 11:44 Cholecalciferol (Vitamin D3 Tablet) 4,000 unit DAILY PO 09/17/24 10:00 09/17/24 11:46 Pantoprazole Sodium (Protonix) 40 mg DAILY IV 09/17/24 10:00 09/17/24 11:44 Urea (Ure-Na) 15 gm TID PO 09/17/24 14:00 Family History: Malignant neoplasm of breast G8 SISTER Review of Systems All 12 item review of systems reviewed with the patient nonsignificant except what is mentioned in the history of present illness H&P Exam Vital Signs/I&O Vital Sign Date Time Temp Pulse Resp B/P (MAP) Pulse Ox O2 Delivery O2 Flow Rate FiO2 09/17/24 08:30 97.7 79 16 107/68 (81) 95 97.7 09/16/24 22:02 Room Air* 0 21 Intake and Output 09/16/24 09/17/24 19:00 07:00 Intake Total 400 ml 0 ml Balance 400 ml 0 ml Intake Oral 0 ml IV Total 400 ml Physical Exam Patient is awake alert appeared in no acute distress Lungs clear to auscultation bilaterally Cardiac exam regular rate and rhythm GI soft nontender was normal Extremities no clubbing cyanosis or edema Neuro nonfocal Labs/Diagnostic Data Labs/Diagnostic Data Laboratory Tests Test 09/17/24 05:29 09/16/24 17:30 09/16/24 05:36 09/16/24 04:00 Range/Units White Blood Count 3.2 #L 4.4-10.8 10^3/uL Red Blood Count 3.71 L 4.0-5.20 10^6/uL Hemoglobin 11.6 L 12.2-16.2 g/dL Hematocrit 34.6 L 36.0-46.0 % Mean Corpuscular Volume 93.0 80.0-100.0 fL Mean Corpuscular Hemoglobin 31.3 28.0-32.0 pg Mean Corpuscular Hemoglobin Concent 33.6 32.0-36.0 g/dL Red Cell Distribution Width 13.1 11.8-14.3 % Platelet Count 129 L 140-450 10^3/uL Mean Platelet Volume 7.6 6.9-10.8 fL Neutrophils (%) (Auto) 72.1 37.0-80.0 % Lymphocytes (%) (Auto) 14.5 10.0-50.0 % Monocytes (%) (Auto) 12.9 H 0.0-12.0 % Eosinophils (%) (Auto) 0.3 0.0-7.0 % Basophils (%) (Auto) 0.2 0.0-2.0 % Neutrophils # (Auto) 2.3 1.6-8.6 10 ^3/uL Lymphocytes # (Auto) 0.5 0.4-5.4 10 ^3/uL Monocytes # (Auto) 0.4 0-1.3 10 ^3/uL Eosinophils # (Auto) 0 0-0.8 10 ^3/uL Basophils # (Auto) 0 0-0.2 10 ^3/uL Nucleated Red Blood Cells 0.1 % Sodium Level 123 L 120 L 136-145 mmol/L Potassium Level 3.9 3.8 3.5-5.1 mmol/L Chloride Level 93 L 93 L 98-107 mmol/L Carbon Dioxide Level 25 20 20-31 mmol/L Anion Gap 5 7 5-15 Blood Urea Nitrogen 8 L 8 L 9-23 mg/dL Creatinine 0.68 0.71 0.550-1.02 mg/dL Glomerular Filtration Rate Calc 94 92 >90 mL/min BUN/Creatinine Ratio 11.8 11.3 10.0-20.0 Serum Glucose 83 92 74-106 mg/dL Calcium Level 9.0 8.1 L 8.7-10.4 mg/dL Total Bilirubin 0.6 0.5 0.2-1.0 mg/dL Aspartate Amino Transferase (AST) 35 30 13-40 U/L Alanine Aminotransferase (ALT) 16 13 7-40 U/L Alkaline Phosphatase 44 L 41 L 46-116 U/L Total Protein 7.2 7.0 5.7-8.2 g/dL Albumin 4.1 4.2 3.2-4.8 g/dL Urine Color Light-yellow Light-yellow Yellow Urine Clarity Clear Clear Clear Urine pH 5.5 6.0 5.0-9.0 Urine Specific [place] 1.024 1.011 1.001-1.035 Urine Protein Trace H Negative Negative Urine Ketones 2+ H 1+ H Negative Urine Blood Negative Negative Negative /uL Urine Nitrite Negative Negative Negative Urine Bilirubin Negative Negative Negative Urine Urobilinogen Normal Normal Negative mg/dL Urine Leukocyte Esterase Negative Negative Negative /uL Urine RBC 2 1 0 - 4 /hpf Urine Microscopic WBC 3 < 1 0-5 /HPF Urine Squamous Epithelial Cells Few None seen <5 /hpf Urine Bacteria None seen Few H None Seen /hpf Urine Mucus Few Few None Seen Urine Osmolality 766 mOsm/kg Urine Creatinine 141.92 H 30.0-125.0 mg/dL Urine Protein/Creatinine Ratio 0.32 Urine Sodium 71 40-220 mmol/L Urine Glucose Normal Normal Normal mg/dL Urine Total Protein 44.9 H 1-14 mg/dL Phosphorus Level 2.5 2.4-5.1 mg/dL Magnesium Level 1.7 1.6-2.6 mg/dL Test 09/15/24 23:23 09/15/24 21:45 09/15/24 21:30 Range/Units Prothrombin Time 10.3 9.3-11.8 sec Prothrombin Time INR 0.97 0.9-1.15 Activated Partial Thromboplast Time 27.6 24.5-34.5 SEC D-Dimer, Quantitative 0.77 H 0.0-0.49 mg/L FEU White Blood Count 2.4 L 4.4-10.8 10^3/uL Red Blood Count 3.73 L 4.0-5.20 10^6/uL Hemoglobin 11.7 L 12.2-16.2 g/dL Hematocrit 34.9 L 36.0-46.0 % Mean Corpuscular Volume 93.5 80.0-100.0 fL Mean Corpuscular Hemoglobin 31.3 28.0-32.0 pg Mean Corpuscular Hemoglobin Concent 33.4 32.0-36.0 g/dL Red Cell Distribution Width 12.8 11.8-14.3 % Platelet Count 119 L 140-450 10^3/uL Mean Platelet Volume 6.9 6.9-10.8 fL Neutrophils (%) (Auto) 76.8 37.0-80.0 % Lymphocytes (%) (Auto) 14.2 10.0-50.0 % Monocytes (%) (Auto) 8.6 0.0-12.0 % Eosinophils (%) (Auto) 0.1 0.0-7.0 % Basophils (%) (Auto) 0.3 0.0-2.0 % Neutrophils # (Auto) 1.8 1.6-8.6 10 ^3/uL Lymphocytes # (Auto) 0.3 L 0.4-5.4 10 ^3/uL Monocytes # (Auto) 0.2 0-1.3 10 ^3/uL Eosinophils # (Auto) 0 0-0.8 10 ^3/uL Basophils # (Auto) 0 0-0.2 10 ^3/uL Nucleated Red Blood Cells 0.1 % Sodium Level 115 *L 136-145 mmol/L Potassium Level 4.1 3.5-5.1 mmol/L Chloride Level 87 L 98-107 mmol/L Carbon Dioxide Level 23 20-31 mmol/L Anion Gap 5 5-15 Blood Urea Nitrogen 7 L 9-23 mg/dL Creatinine 0.67 0.550-1.02 mg/dL Glomerular Filtration Rate Calc 95 >90 mL/min BUN/Creatinine Ratio 10.4 10.0-20.0 Serum Glucose 113 H 74-106 mg/dL Lactic Acid Level 0.7 0.4-2.0 mmol/L Calcium Level 8.8 8.7-10.4 mg/dL Troponin I High Sensitivity 3 L </=34 ng/L C-Reactive Protein High Sensitivity 0.17 <1.0 mg/dL B-Type Natriuretic Peptide 100.30 0-100 pg/mL Thyroid Stimulating Hormone (TSH) 1.46 0.55-4.78 uIU/mL Influenza Type A Antigen Negative Negative Influenza Type B Antigen Negative Negative SARS-CoV-2 Antigen (Rapid) Positive NEGATIVE Assessment Hyponatremia secondary to SIADH Metastatic breast cancer Lung metastasis Pancytopenia Normal kidney function Recommendations Closely monitor fluid and electrolytes Avoid nephrotoxic medications Strict I&Os Check urine electrolytes and urine osmolality Avoid rapid correction of serum sodium DC sodium chloride 3% Repeat labs and follow closely IV antibiotics Hematology consult We will continue to follow Patient seen and examined by myself. I discussed my plan of care with the patient, her sister who helps to translate from a Latvian language and primary nurse at the bedside I would like to thank Dr. Zuniga for the consult, will follow Plan discussed with: Patient ANGELA MCNEAL MD Sep 16, 2024 17:32
[2024-09-16 17:51] VITALS: O2SAT 95
[2024-09-16 17:54] LABS: Urine Bacteria None Seen /hpf (None Seen)
[2024-09-16 18:11] LABS: Alanine Aminotransferase 13 U/L (7-40); Anion Gap 7 (5-15); Aspartate Aminotransferase 30 U/L (13-40); BUN/Creatinine Ratio 11.3 (10.0-20.0); Carbon Dioxide 20 mmol/L (20-31); Glucose 92 mg/dL (74-106); Potassium 3.8 mmol/L (3.5-5.1)
[2024-09-16 18:12] LABS: Albumin 4.2 g/dL (3.2-4.8); Bilirubin, Total 0.5 mg/dL (0.2-1.0)
[2024-09-16 18:14] LABS: Alkaline Phosphatase 41 U/L (46-116); Blood Urea Nitrogen 8 mg/dL (9-23); Calcium 8.1 mg/dL (8.7-10.4); Chloride 93 mmol/L (98-107); Sodium 120 mmol/L (136-145)
[2024-09-16 18:17] LABS: Urine Blood Negative /uL (Negative); Urine Clarity Clear (Clear); Urine Color Light-Yellow (Yellow); Urine Mucus FEW (None Seen); Urine Protein, UAD TRACE (Negative); Urine Specific Gravity 1.024 (1.001-1.035); Urine Squamous Epithelial Cell FEW /hpf (<5); Urine Urobilinogen Normal (Negative); Urine WBC 3 /HPF (0-5); Urine pH 5.5 (5.0-9.0)
[2024-09-16 18:17] LABS: Magnesium 1.7 mg/dL (1.6-2.6)
[2024-09-16 18:19] LABS: Phosphorus 2.5 mg/dL (2.4-5.1)
[2024-09-16 18:30] LABS: Protein, Urine 44.9 mg/dL (1-14)
[2024-09-16 18:33] LABS: Creatinine, Urine 141.92 mg/dL (30.0-125.0); Urine Protein/Creatinine Ratio 0.32
[2024-09-16 18:36] LABS: Creatinine, Urine 142.75 mg/dL (30.0-125.0)
[2024-09-16 21:47] VITALS: BP 123/68; PULSE 81; RESP 17; TEMP 97.6; O2SAT 97
[2024-09-16 22:02] VITALS: BP 123/68; PULSE 81; RESP 17; TEMP 97.6; O2SAT 97
[2024-09-16] MEDS: ASCORBIC ACID 500 MG TAB PO SCH (22:32)
[2024-09-16] MEDS: cefTRIAXone 1GM/50ML D5W 50 ML IV SCH (22:53)
[2024-09-16] MEDS ORDERED: POM PO (23:28)
[2024-09-16] MEDS ORDERED: FAMO20TA10 PO (23:41)
[2024-09-17] VITALS (9 sets, daily range): BP systolic 104–130; BP diastolic 62–72; PULSE 68–98; RESP 14–17; TEMP 97.7–98.3; O2SAT 95–97
--- NOTE | 2024-09-17 05:54 | DVH ---
CHEST RADIOGRAPH Indication: Covid-19 pneumonia Technique: Single frontal view of the chest was obtained Comparison: XY CHEST XRAY 1 VIEW on DOS: 09/15/24 FINDINGS: Lines and Tubes: Right infusion catheter is present with its tip overlying the superior vena cava. Lungs: Right hemidiaphragm is elevated. Bilateral interstitial prominence. [place] right airspace disease at the right lung base. Patchy left upper lobe opacity. Pleura: Possible right pleural effusion. No pneumothorax. Cardiomediastinal contours: Unremarkable Bones: No acute osseous abnormality. IMPRESSION: 1. Right basilar and left upper lobe opacities which may represent pneumonia. 2. Possible right pleural effusion.
[2024-09-17 06:13] LABS: Basophils # (auto) 0 10 ^3/uL (0-0.2); Basophils % (auto) 0.2 % (0.0-2.0); Eosinophils # (auto) 0 10 ^3/uL (0-0.8); Eosinophils % (auto) 0.3 % (0.0-7.0); Hematocrit 34.6 % (36.0-46.0); Hemoglobin 11.6 g/dL (12.2-16.2); Lymphocytes # (auto) 0.5 10 ^3/uL (0.4-5.4); Lymphocytes % (auto) 14.5 % (10.0-50.0); Mean Corpuscular Hemoglobin 31.3 pg (28.0-32.0); Mean Corpuscular Hgb Conc. 33.6 g/dL (32.0-36.0); Monocytes # (auto) 0.4 10 ^3/uL (0-1.3); Monocytes % (auto) 12.9 % (0.0-12.0); Neutrophils # (auto) 2.3 10 ^3/uL (1.6-8.6); Neutrophils % (auto) 72.1 % (37.0-80.0); Nucleated Red Blood Cells % 0.1 %; Platelet Count (auto) 129 10^3/uL (140-450); Red Blood Cells 3.71 10^6/uL (4.0-5.20); Red Cell Distribution Width 13.1 % (11.8-14.3); White Blood Cell 3.2 10^3/uL (4.4-10.8)
[2024-09-17 06:38] LABS: Alanine Aminotransferase 16 U/L (7-40); Albumin 4.1 g/dL (3.2-4.8); Anion Gap 5 (5-15); Aspartate Aminotransferase 35 U/L (13-40); BUN/Creatinine Ratio 11.8 (10.0-20.0); Bilirubin, Total 0.6 mg/dL (0.2-1.0); Carbon Dioxide 25 mmol/L (20-31); Glucose 83 mg/dL (74-106); Potassium 3.9 mmol/L (3.5-5.1); Total Protein 7.2 g/dL (5.7-8.2)
[2024-09-17 06:40] LABS: Alkaline Phosphatase 44 U/L (46-116); Blood Urea Nitrogen 8 mg/dL (9-23); Chloride 93 mmol/L (98-107); Sodium 123 mmol/L (136-145)
--- NOTE | 2024-09-17 09:27 | DVHPN2 ---
Reviewed: Care Plan, H&P, Labs, Medications, Previous Orders, Radiology Changes from previous H/P or p: No Changes Objective Vitals Vital Signs Date Time Temp Pulse Resp B/P (MAP) Pulse Ox O2 Delivery O2 Flow Rate FiO2 09/17/24 05:00 98.1 78 16 130/64 (86) 97 98.1 09/16/24 22:02 Room Air* 0 21 Intake/Output Intake and Output 09/17/24 07:00 Intake Total 400 ml Balance 400 ml Intake Oral 0 ml IV Total 400 ml Medications Current Medications Medications Dose Ordered Sig/Amrit Route Start Time Stop Time Status Last Admin Dose Admin Nitroglycerin 0.4 mg Q5MINP PRN SL 09/16/24 00:00 Morphine Sulfate 2 mg Q30M PRN IV 09/16/24 00:00 Ceftriaxone Sodium 50 ml @ 100 mls/hr Q24H IV 09/16/24 23:00 09/16/24 22:53 100 MLS/HR Azithromycin 250 ml @ 125 mls/hr DAILY IV 09/16/24 10:00 09/16/24 10:07 125 MLS/HR Albuterol 2.5 mg Q6HPRN PRN NEB 09/16/24 00:15 Temazepam 15 mg QHSP PRN PO 09/16/24 00:15 Ondansetron HCl 4 mg Q4HP PRN IV 09/16/24 00:15 Enoxaparin Sodium 40 mg DAILY SC 09/16/24 10:00 09/16/24 10:07 40 MG Acetaminophen 650 mg Q6HP PRN PO 09/16/24 00:15 Zinc Sulfate 220 mg DAILY PO 09/17/24 10:00 Ascorbic Acid 500 mg BID PO 09/16/24 22:00 09/16/24 22:32 500 MG Cholecalciferol 4,000 unit DAILY PO 09/17/24 10:00 Laboratory Results Laboratory Tests 09/17/24 05:29 Chemistry Test 09/17/24 05:29 Albumin 4.1 g/dL (3.2-4.8) Calcium Level 9.0 mg/dL (8.7-10.4) Total Protein 7.2 g/dL (5.7-8.2) LFT Test 09/17/24 05:29 Alanine Aminotransferase (ALT) 16 U/L (7-40) Alkaline Phosphatase 44 U/L (46-116) L Aspartate Amino Transferase (AST) 35 U/L (13-40) Total Bilirubin 0.6 mg/dL (0.2-1.0) Urinalysis Test 09/16/24 17:30 Urine Color Light-yellow (Yellow) Urine Clarity Clear (Clear) Urine pH 5.5 (5.0-9.0) Urine Specific [place] 1.024 (1.001-1.035) Urine Protein Trace (Negative) H Urine Ketones 2+ (Negative) H Urine Blood Negative /uL (Negative) Urine Nitrite Negative (Negative) Urine Bilirubin Negative (Negative) Urine Urobilinogen Normal mg/dL (Negative) Urine Leukocyte Esterase Negative /uL (Negative) Urine RBC 2 /hpf (0 - 4) Urine Microscopic WBC 3 /HPF (0-5) Urine Squamous Epithelial Cells Few /hpf (<5) Urine Bacteria None seen /hpf (None Seen) Urine Mucus Few (None Seen) Urine Osmolality 766 mOsm/kg Urine Creatinine 141.92 mg/dL (30.0-125.0) H Urine Protein/Creatinine Ratio 0.32 Urine Sodium 71 mmol/L (40-220) Urine Glucose Normal mg/dL (Normal) Urine Total Protein 44.9 mg/dL (1-14) H Microbiology Microbiology Date/Time Source Procedure Growth Status 09/15/24 21:45 Blood Blood Culture - Preliminary NO GROWTH AFTER 24 HOURS OF INCUBATION. 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 Garzon appreciated Time spent 55 minutes Patient is full code Blood cultures negative Prognosis poor Plan discussed with: Patient My Orders Orders - LEATHA OLIVERA MD Procedure Category Date Status Time *[facility] CONS 09/16/24 Transmitted -[place] 13:21 Zinc Sulfate PHA 09/17/24 In Process 10:00 Ascorbic Acid Tablet PHA 09/16/24 In Process (Vitamin C Tablet) 22:00 Cholecalciferol PHA 09/17/24 In Process Tablet (Vitamin D3 10:00 Date of Service: Sep 17, 2024 Billing Provider: LEATHA OLIVERA MD Common Visit Codes: [id number] INP/OBS CARE(HIGH) LEATHA OLIVERA MD Sep 17, 2024 09:27
--- NOTE | 2024-09-17 10:18 | DVHPN2 ---
Progress Note Date Seen: Sep 17, 2024 Objective vital signs Vital Sign Date Time Temp Pulse Resp B/P (MAP) Pulse Ox O2 Delivery O2 Flow Rate FiO2 09/17/24 08:30 97.7 79 16 107/68 (81) 95 97.7 09/16/24 22:02 Room Air* 0 21 Total Intake and Output 09/16/24 09/16/24 09/17/24 15:00 23:00 07:00 Intake Total 400 ml 0 ml Balance 400 ml 0 ml medications Current Medications Medications Dose Ordered Sig/Amrit Route Start Time Stop Time Status Last Admin Dose Admin Nitroglycerin 0.4 mg Q5MINP PRN SL 09/16/24 00:00 Morphine Sulfate 2 mg Q30M PRN IV 09/16/24 00:00 Ceftriaxone Sodium 50 ml @ 100 mls/hr Q24H IV 09/16/24 23:00 09/16/24 22:53 Azithromycin 250 ml @ 125 mls/hr DAILY IV 09/16/24 10:00 09/16/24 10:07 Albuterol 2.5 mg Q6HPRN PRN NEB 09/16/24 00:15 Temazepam 15 mg QHSP PRN PO 09/16/24 00:15 Ondansetron HCl 4 mg Q4HP PRN IV 09/16/24 00:15 Enoxaparin Sodium 40 mg DAILY SC 09/16/24 10:00 09/16/24 10:07 Acetaminophen 650 mg Q6HP PRN PO 09/16/24 00:15 Zinc Sulfate 220 mg DAILY PO 09/17/24 10:00 Ascorbic Acid 500 mg BID PO 09/16/24 22:00 09/16/24 22:32 Cholecalciferol 4,000 unit DAILY PO 09/17/24 10:00 Pantoprazole Sodium 40 mg DAILY IV 09/17/24 10:00 Examination: LUNGS:Normal, CVS:Normal, MSK:Normal laboratory and microbiology Laboratory Tests 09/17/24 05:29 Test 09/17/24 05:29 Range/Units Serum Glucose 83 74-106 mg/dL Microbiology Date/Time Source Procedure Growth Status 09/15/24 21:45 Blood Blood Culture - Preliminary NO GROWTH AFTER 24 HOURS OF INCUBATION. Resulted Problem List/Assessment/Plan Problem List/Assessment/Plan Hyponatremia secondary to SIADH Metastatic breast cancer Lung metastasis Pancytopenia Normal kidney function Recommendations Sodium appropriately on slowly correcting Kidney function remained within normal limit Strict I&Os Start urea sodium packet 3 times daily 15 g KCL replacement Avoid rapid correction of serum sodium Repeat labs and follow closely IV antibiotics Hematology consult We will continue to follow Plan discussed with: Patient My Orders My Orders Orders - ANGELA MCNEAL MD Procedure Category Date Status Time Urea (Ure-Na) PHA 09/17/24 Logged 14:00 Potassium Effervesent PHA 09/17/24 Logged Tab (Klor-Con/Ef) 10:15 ANGELA MCNEAL MD Sep 17, 2024 10:18
[2024-09-17] MEDS: PANTOPRAZOLE 40 MG/10 ML VIAL INJ IV SCH (11:44)
[2024-09-17] MEDS: POTASSIUM EFFERVESENT TAB 25 MEQ PO ONE (11:45)
[2024-09-17] MEDS: CHOLECALCIFEROL (VITD3) 1,000UNIT=25mCg TAB PO SCH (11:46)
[2024-09-17] MEDS: ZINC SULFATE 220mg CAP or TAB PO SCH (11:52)
--- NOTE | 2024-09-17 12:06 | DVHPN2 ---
Progress Note Date Seen: Sep 17, 2024 Medical Necessity Reason Pt with a Central, PICC or Fol: No Subjective Patient reports: No new complaints Objective vital signs Vital Sign Date Time Temp Pulse Resp B/P (MAP) Pulse Ox O2 Delivery O2 Flow Rate FiO2 09/17/24 08:30 97.7 79 16 107/68 (81) 95 97.7 09/16/24 22:02 Room Air* 0 21 Total Intake and Output 09/16/24 09/16/24 09/17/24 15:00 23:00 07:00 Intake Total 400 ml 0 ml Balance 400 ml 0 ml medications Current Medications Medications Dose Ordered Sig/Amrit Route Start Time Stop Time Status Last Admin Dose Admin Nitroglycerin 0.4 mg Q5MINP PRN SL 09/16/24 00:00 Morphine Sulfate 2 mg Q30M PRN IV 09/16/24 00:00 Ceftriaxone Sodium 50 ml @ 100 mls/hr Q24H IV 09/16/24 23:00 09/16/24 22:53 Azithromycin 250 ml @ 125 mls/hr DAILY IV 09/16/24 10:00 09/17/24 11:44 Albuterol 2.5 mg Q6HPRN PRN NEB 09/16/24 00:15 Temazepam 15 mg QHSP PRN PO 09/16/24 00:15 Ondansetron HCl 4 mg Q4HP PRN IV 09/16/24 00:15 Enoxaparin Sodium 40 mg DAILY SC 09/16/24 10:00 09/17/24 11:45 Acetaminophen 650 mg Q6HP PRN PO 09/16/24 00:15 Zinc Sulfate 220 mg DAILY PO 09/17/24 10:00 09/17/24 11:52 Ascorbic Acid 500 mg BID PO 09/16/24 22:00 09/17/24 11:44 Cholecalciferol 4,000 unit DAILY PO 09/17/24 10:00 09/17/24 11:46 Pantoprazole Sodium 40 mg DAILY IV 09/17/24 10:00 09/17/24 11:44 Urea 15 gm TID PO 09/17/24 14:00 Examination: LUNGS:Normal, CVS:Normal, MSK:Normal laboratory and microbiology Laboratory Tests 09/17/24 05:29 Test 09/17/24 05:29 Range/Units Serum Glucose 83 74-106 mg/dL Microbiology Date/Time Source Procedure Growth Status 09/15/24 21:45 Blood Blood Culture - Preliminary NO GROWTH AFTER 24 HOURS OF INCUBATION. Resulted Problem List/Assessment/Plan Problem List/Assessment/Plan Hyponatremia secondary to SIADH COVID positive Metastatic breast cancer Lung metastasis Pancytopenia Normal kidney function Recommendations Sodium appropriately on slowly correcting Kidney function remained within normal limit Strict I&Os Start urea sodium packet 3 times daily 15 g KCL replacement Avoid rapid correction of serum sodium Repeat labs and follow closely IV antibiotics Hematology consult We will continue to follow Plan discussed with: Patient My Orders My Orders Orders - ANGELA MCNEAL MD Procedure Category Date Status Time Urea (Ure-Na) PHA 09/17/24 In Process 14:00 Maintain Fluid YECENIA 09/17/24 In Process Restrictions 10:49 ANGELA MCNEAL MD Sep 17, 2024 12:06
[2024-09-17] MEDS: UREA 15gm PO Powder PKG PO SCH (16:09)
[2024-09-18] VITALS (10 sets, daily range): BP systolic 97–110; BP diastolic 53–69; PULSE 60–112; RESP 14–20; TEMP 97.7–98.1; O2SAT 95–99
--- NOTE | 2024-09-18 08:34 | DVHPN2 ---
Reviewed: Care Plan, H&P, Labs, Medications, Previous Orders, Radiology Changes from previous H/P or p: No Changes Objective Vitals Vital Signs Date Time Temp Pulse Resp B/P (MAP) Pulse Ox O2 Delivery O2 Flow Rate FiO2 09/18/24 08:15 95 Room Air 0.0 09/18/24 08:15 21 09/18/24 05:00 97.9 79 16 110/53 (72) 97.9 Intake/Output Intake and Output 09/18/24 07:00 Intake Total 780 ml Output Total 2 ml Balance 778 ml Intake Oral 480 ml IV Total 300 ml Output Urine Total 2 ml # Voids 5 # Bowel Movements 3 Medications Current Medications Medications Dose Ordered Sig/Amrit Route Start Time Stop Time Status Last Admin Dose Admin Nitroglycerin 0.4 mg Q5MINP PRN SL 09/16/24 00:00 Morphine Sulfate 2 mg Q30M PRN IV 09/16/24 00:00 Ceftriaxone Sodium 50 ml @ 100 mls/hr Q24H IV 09/16/24 23:00 09/17/24 22:37 100 MLS/HR Azithromycin 250 ml @ 125 mls/hr DAILY IV 09/16/24 10:00 09/17/24 11:44 125 MLS/HR Albuterol 2.5 mg Q6HPRN PRN NEB 09/16/24 00:15 Temazepam 15 mg QHSP PRN PO 09/16/24 00:15 Ondansetron HCl 4 mg Q4HP PRN IV 09/16/24 00:15 Enoxaparin Sodium 40 mg DAILY SC 09/16/24 10:00 09/17/24 11:45 40 MG Acetaminophen 650 mg Q6HP PRN PO 09/16/24 00:15 Zinc Sulfate 220 mg DAILY PO 09/17/24 10:00 09/17/24 11:52 220 MG Ascorbic Acid 500 mg BID PO 09/16/24 22:00 09/17/24 22:35 500 MG Cholecalciferol 4,000 unit DAILY PO 09/17/24 10:00 09/17/24 11:46 4,000 UNIT Pantoprazole Sodium 40 mg DAILY IV 09/17/24 10:00 09/17/24 11:44 40 MG Urea 15 gm TID PO 09/17/24 14:00 09/18/24 05:21 15 GM Laboratory Results Laboratory Tests 09/17/24 05:29 09/17/24 18:01 Urinalysis Test 09/16/24 17:30 Urine Color Light-yellow (Yellow) Urine Clarity Clear (Clear) Urine pH 5.5 (5.0-9.0) Urine Specific [place] 1.024 (1.001-1.035) Urine Protein Trace (Negative) H Urine Ketones 2+ (Negative) H Urine Blood Negative /uL (Negative) Urine Nitrite Negative (Negative) Urine Bilirubin Negative (Negative) Urine Urobilinogen Normal mg/dL (Negative) Urine Leukocyte Esterase Negative /uL (Negative) Urine RBC 2 /hpf (0 - 4) Urine Microscopic WBC 3 /HPF (0-5) Urine Squamous Epithelial Cells Few /hpf (<5) Urine Bacteria None seen /hpf (None Seen) Urine Mucus Few (None Seen) Urine Osmolality 766 mOsm/kg Urine Creatinine 141.92 mg/dL (30.0-125.0) H Urine Protein/Creatinine Ratio 0.32 Urine Sodium 71 mmol/L (40-220) Urine Glucose Normal mg/dL (Normal) Urine Total Protein 44.9 mg/dL (1-14) H Microbiology Microbiology Date/Time Source Procedure Growth Status 09/15/24 21:45 Blood Blood Culture - Preliminary NO GROWTH AFTER 48 HOURS OF INCUBATION. Resulted Labs and/or images reviewed: Labs reviewed by me, Image(s) reviewed by me Assessment/Plan Assessment/Plan Acute hypoxic respiratory failure: Oxygen by nasal cannula COVID positive pneumonia: Zinc vitamin-C vitamin D Right lower lobe pneumonia: Rocephin azithromycin History of breast cancer with Mets to the lungs diagnosed 2012 status post chemotherapy and radiation therapy, currently on TAGRISSO 80 mg po daily History of hepatitis-B X 15 yrs on BARACLUDE 0.5 mg po daily History of left mastectomy Slightly elevated D-dimer 0.77 Severe hyponatremia sodium 115 rule out SIADH: Consult for Dr. Garzon appreciated, complete metabolic panel from today pending Time spent 55 minutes Patient is full code Blood cultures negative Prognosis poor Plan discussed with: Patient My Orders Orders - LEATHA OLIVERA MD Procedure Category Date Status Time Pantoprazole PHA 09/17/24 In Process (Protonix) 10:00 Date of Service: Sep 18, 2024 Billing Provider: LEATHA OLIVERA MD Common Visit Codes: [id number] INP/OBS CARE(HIGH) LEATHA OLIVERA MD Sep 18, 2024 08:34
[2024-09-18 10:59] LABS: Alanine Aminotransferase 19 U/L (7-40); Albumin 4.8 g/dL (3.2-4.8); Alkaline Phosphatase 51 U/L (46-116); Anion Gap 9 (5-15); Aspartate Aminotransferase 29 U/L (13-40); BUN/Creatinine Ratio 38.8 (10.0-20.0); Bilirubin, Total 0.5 mg/dL (0.2-1.0); Calcium 9.9 mg/dL (8.7-10.4); Carbon Dioxide 25 mmol/L (20-31); Potassium 3.5 mmol/L (3.5-5.1); Total Protein 8.1 g/dL (5.7-8.2)
[2024-09-18 11:14] LABS: Blood Urea Nitrogen 33 mg/dL (9-23); Chloride 92 mmol/L (98-107); Glucose 122 mg/dL (74-106); Sodium 126 mmol/L (136-145)
--- NOTE | 2024-09-18 11:23 | DVHPN2 ---
Progress Note Date Seen: Sep 18, 2024 Medical Necessity Reason Pt with a Central, PICC or Fol: No Subjective Patient reports: No new complaints Other Systems: Patient seen and examined by myself today in follow-up Objective vital signs Vital Sign Date Time Temp Pulse Resp B/P (MAP) Pulse Ox O2 Delivery O2 Flow Rate FiO2 09/18/24 09:00 97.7 92 20 102/69 (80) 97 97.7 09/18/24 08:15 Room Air 0.0 09/18/24 08:15 21 Total Intake and Output 09/17/24 09/17/24 09/18/24 15:00 23:00 07:00 Intake Total 250 ml 240 ml 290 ml Output Total 2 ml Balance 250 ml 238 ml 290 ml medications Current Medications Medications Dose Ordered Sig/Amrit Route Start Time Stop Time Status Last Admin Dose Admin Nitroglycerin 0.4 mg Q5MINP PRN SL 09/16/24 00:00 Morphine Sulfate 2 mg Q30M PRN IV 09/16/24 00:00 Ceftriaxone Sodium 50 ml @ 100 mls/hr Q24H IV 09/16/24 23:00 09/17/24 22:37 100 MLS/HR Azithromycin 250 ml @ 125 mls/hr DAILY IV 09/16/24 10:00 09/18/24 09:46 125 MLS/HR Albuterol 2.5 mg Q6HPRN PRN NEB 09/16/24 00:15 Temazepam 15 mg QHSP PRN PO 09/16/24 00:15 Ondansetron HCl 4 mg Q4HP PRN IV 09/16/24 00:15 Enoxaparin Sodium 40 mg DAILY SC 09/16/24 10:00 09/18/24 09:44 40 MG Acetaminophen 650 mg Q6HP PRN PO 09/16/24 00:15 Zinc Sulfate 220 mg DAILY PO 09/17/24 10:00 09/18/24 09:45 220 MG Ascorbic Acid 500 mg BID PO 09/16/24 22:00 09/18/24 09:45 500 MG Cholecalciferol 4,000 unit DAILY PO 09/17/24 10:00 09/18/24 09:45 4,000 UNIT Pantoprazole Sodium 40 mg DAILY IV 09/17/24 10:00 09/18/24 09:44 40 MG Urea 15 gm TID PO 09/17/24 14:00 09/18/24 05:21 15 GM Examination: LUNGS:Normal, CVS:Normal, MSK:Normal laboratory and microbiology Laboratory Tests 09/18/24 09:30 09/17/24 05:29 Test 09/18/24 09:30 Range/Units Serum Glucose 122 H 74-106 mg/dL Microbiology Date/Time Source Procedure Growth Status 09/15/24 21:45 Blood Blood Culture - Preliminary NO GROWTH AFTER 48 HOURS OF INCUBATION. Resulted Problem List/Assessment/Plan Problem List/Assessment/Plan Hyponatremia secondary to SIADH COVID positive Metastatic breast cancer Lung metastasis Pancytopenia Normal kidney function Recommendations Sodium appropriately on slowly improving Kidney function remained within normal limit Strict I&Os Start urea sodium packet 3 times daily 15 g KCL replacement Avoid rapid correction of serum sodium Repeat labs and follow closely IV antibiotics Hematology consult We will continue to follow Plan discussed with: Patient ANGELA MCNEAL MD Sep 18, 2024 11:23
[2024-09-19] VITALS (11 sets, daily range): BP systolic 91–114; BP diastolic 57–71; PULSE 85–101; RESP 14–17; TEMP 97.3–98.1; O2SAT 90–99
--- NOTE | 2024-09-19 11:03 | DVHPN2 ---
Progress Note Date Seen: Sep 19, 2024 Medical Necessity Reason Pt with a Central, PICC or Fol: No Subjective Patient reports: No new complaints Other Systems: Patient seen and examined by myself today in follow-up Objective vital signs Vital Sign Date Time Temp Pulse Resp B/P (MAP) Pulse Ox O2 Delivery O2 Flow Rate FiO2 09/19/24 09:00 98.1 85 17 102/67 (79) 98 98.1 09/19/24 08:00 Room Air* 0 21 Total Intake and Output 09/18/24 09/18/24 09/19/24 15:00 23:00 07:00 Intake Total 800 ml 240 ml Output Total 650 ml 380 ml Balance 150 ml -140 ml medications Current Medications Medications Dose Ordered Sig/Amrit Route Start Time Stop Time Status Last Admin Dose Admin Nitroglycerin 0.4 mg Q5MINP PRN SL 09/16/24 00:00 Morphine Sulfate 2 mg Q30M PRN IV 09/16/24 00:00 Ceftriaxone Sodium 50 ml @ 100 mls/hr Q24H IV 09/16/24 23:00 09/18/24 22:01 100 MLS/HR Azithromycin 250 ml @ 125 mls/hr DAILY IV 09/16/24 10:00 09/19/24 09:41 125 MLS/HR Albuterol 2.5 mg Q6HPRN PRN NEB 09/16/24 00:15 Temazepam 15 mg QHSP PRN PO 09/16/24 00:15 Ondansetron HCl 4 mg Q4HP PRN IV 09/16/24 00:15 Enoxaparin Sodium 40 mg DAILY SC 09/16/24 10:00 09/19/24 09:41 40 MG Acetaminophen 650 mg Q6HP PRN PO 09/16/24 00:15 Zinc Sulfate 220 mg DAILY PO 09/17/24 10:00 09/19/24 09:41 220 MG Ascorbic Acid 500 mg BID PO 09/16/24 22:00 09/19/24 09:41 500 MG Cholecalciferol 4,000 unit DAILY PO 09/17/24 10:00 09/19/24 09:41 4,000 UNIT Pantoprazole Sodium 40 mg DAILY IV 09/17/24 10:00 09/19/24 09:40 40 MG Urea 15 gm TID PO 09/17/24 14:00 09/19/24 05:46 15 GM laboratory and microbiology Laboratory Tests 09/18/24 09:30 09/17/24 05:29 Test 09/18/24 09:30 Range/Units Serum Glucose 122 H 74-106 mg/dL Microbiology Date/Time Source Procedure Growth Status 09/15/24 21:45 Blood Blood Culture - Preliminary NO GROWTH AFTER 72 HOURS OF INCUBATION. Resulted Problem List/Assessment/Plan Problem List/Assessment/Plan Hyponatremia secondary to SIADH COVID positive Metastatic breast cancer Lung metastasis Pancytopenia Normal kidney function Recommendations Sodium appropriately on slowly improving Kidney function remained within normal limit Strict I&Os Fluid restriction Start urea sodium packet 3 times daily 15 g KCL replacement Avoid rapid correction of serum sodium Repeat labs and follow closely IV antibiotics I will sign off this case, please reconsult as needed Thank you for the kind Plan discussed with: Patient ANGELA MCNEAL MD Sep 19, 2024 11:03
[2024-09-19] MEDS: SODIUM CHLORIDE 0.9% 1,000 ML IV ONE (13:15)
--- NOTE | 2024-09-19 19:51 | DVHPN2 ---
Reviewed: Care Plan, H&P, Labs, Medications, Previous Orders, Radiology Changes from previous H/P or p: No Changes Objective Vitals Vital Signs Date Time Temp Pulse Resp B/P (MAP) Pulse Ox O2 Delivery O2 Flow Rate FiO2 09/19/24 16:40 97.7 88 17 96/60 (72) 99 97.7 09/19/24 08:00 Room Air* 0 21 Intake/Output Intake and Output 09/19/24 07:00 Intake Total 1040 ml Output Total 1030 ml Balance 10 ml Intake Oral 740 ml IV Total 300 ml Output Urine Total 1030 ml # Bowel Movements 1 Medications Current Medications Medications Dose Ordered Sig/Amrit Route Start Time Stop Time Status Last Admin Dose Admin Nitroglycerin 0.4 mg Q5MINP PRN SL 09/16/24 00:00 Morphine Sulfate 2 mg Q30M PRN IV 09/16/24 00:00 Ceftriaxone Sodium 50 ml @ 100 mls/hr Q24H IV 09/16/24 23:00 09/18/24 22:01 100 MLS/HR Azithromycin 250 ml @ 125 mls/hr DAILY IV 09/16/24 10:00 09/19/24 09:41 125 MLS/HR Albuterol 2.5 mg Q6HPRN PRN NEB 09/16/24 00:15 Temazepam 15 mg QHSP PRN PO 09/16/24 00:15 Ondansetron HCl 4 mg Q4HP PRN IV 09/16/24 00:15 Enoxaparin Sodium 40 mg DAILY SC 09/16/24 10:00 09/19/24 09:41 40 MG Acetaminophen 650 mg Q6HP PRN PO 09/16/24 00:15 Zinc Sulfate 220 mg DAILY PO 09/17/24 10:00 09/19/24 09:41 220 MG Ascorbic Acid 500 mg BID PO 09/16/24 22:00 09/19/24 09:41 500 MG Cholecalciferol 4,000 unit DAILY PO 09/17/24 10:00 09/19/24 09:41 4,000 UNIT Pantoprazole Sodium 40 mg DAILY IV 09/17/24 10:00 09/19/24 09:40 40 MG Urea 15 gm TID PO 09/17/24 14:00 09/19/24 13:14 15 GM Laboratory Results Laboratory Tests 09/17/24 05:29 09/18/24 09:30 Urinalysis Test 09/16/24 17:30 Urine Color Light-yellow (Yellow) Urine Clarity Clear (Clear) Urine pH 5.5 (5.0-9.0) Urine Specific [place] 1.024 (1.001-1.035) Urine Protein Trace (Negative) H Urine Ketones 2+ (Negative) H Urine Blood Negative /uL (Negative) Urine Nitrite Negative (Negative) Urine Bilirubin Negative (Negative) Urine Urobilinogen Normal mg/dL (Negative) Urine Leukocyte Esterase Negative /uL (Negative) Urine RBC 2 /hpf (0 - 4) Urine Microscopic WBC 3 /HPF (0-5) Urine Squamous Epithelial Cells Few /hpf (<5) Urine Bacteria None seen /hpf (None Seen) Urine Mucus Few (None Seen) Urine Osmolality 766 mOsm/kg Urine Creatinine 141.92 mg/dL (30.0-125.0) H Urine Protein/Creatinine Ratio 0.32 Urine Sodium 71 mmol/L (40-220) Urine Glucose Normal mg/dL (Normal) Urine Total Protein 44.9 mg/dL (1-14) H Microbiology Microbiology Date/Time Source Procedure Growth Status 09/15/24 21:45 Blood Blood Culture - Preliminary NO GROWTH AFTER 72 HOURS OF INCUBATION. Resulted Assessment/Plan Assessment/Plan Acute hypoxic respiratory failure: Oxygen by nasal cannula COVID positive pneumonia: Continue Zinc vitamin-C vitamin D Right lower lobe pneumonia: Continue Rocephin azithromycin History of breast cancer with Mets to the lungs diagnosed 2013 status post chemotherapy and radiation therapy, currently on TAGRISSO 80 mg po daily History of hepatitis-B X 15 yrs on BARACLUDE 0.5 mg po daily History of left mastectomy Slightly elevated D-dimer 0.77 Severe hyponatremia sodium 115 rule out SIADH: Consult for Dr. Garzon appreciated, complete metabolic panel from today pending Hypotension: will give bolus 500ml of NS. Patient is full code Blood cultures negative This medical document was created using an electronic medical record system with [employer] direct computerized dictation system. Although this document has been carefully reviewed, there may still be some phonetic and typographical errors. These areas are purely typographical due to imperfections of the software programs, and do not reflect any compromise in the patient's medical care. Plan discussed with: Patient Date of Service: Sep 19, 2024 Billing Provider: ALICJA BARTLETT MD Common Visit Codes: [id number] INP/OBS CARE(HIGH) ALICJA BARTLETT MD Sep 19, 2024 19:51
[2024-09-20] VITALS (7 sets, daily range): BP systolic 96–123; BP diastolic 65–70; PULSE 63–90; RESP 16–18; TEMP 97.4–98.1; O2SAT 94–99
--- NOTE | 2024-09-20 06:17 | DVH ---
EXAM: XR Chest, 1 View CLINICAL INDICATION: Covid-19 pneumonia TECHNIQUE: Frontal view of the chest. COMPARISON: XY CHEST PORTABLE on DOS: 09/17/24, XY CHEST XRAY 1 VIEW on DOS: 09/15/24, CHEST PORTABLE on DOS: 01/13/22, CXRP on DOS: 01/13/22 FINDINGS: LUNGS AND PLEURAL SPACES: Right pleural effusion. Bibasilar atelectasis or pneumonia. HEART: Unremarkable. No cardiomegaly. MEDIASTINUM: Unremarkable. Normal mediastinal contour. BONES/JOINTS: Unremarkable. No acute fracture. TUBES, LINES AND DEVICES: Right-sided Mediport with the distal tip in the SVC. No pneumothorax. OTHER FINDINGS: . IMPRESSION: Right pleural effusion. Bibasilar atelectasis or pneumonia.
[2024-09-20 06:58] LABS: Chloride 99 mmol/L (98-107)
[2024-09-20 07:02] LABS: Basophils # (auto) 0 10 ^3/uL (0-0.2); Basophils % (auto) 0.4 % (0.0-2.0); Eosinophils # (auto) 0.1 10 ^3/uL (0-0.8); Eosinophils % (auto) 1.6 % (0.0-7.0); Hematocrit 37.9 % (36.0-46.0); Hemoglobin 12.5 g/dL (12.2-16.2); Lymphocytes # (auto) 0.8 10 ^3/uL (0.4-5.4); Lymphocytes % (auto) 21.3 % (10.0-50.0); Mean Corpuscular Hemoglobin 31.6 pg (28.0-32.0); Mean Corpuscular Volume 95.5 fL (80.0-100.0); Monocytes # (auto) 0.5 10 ^3/uL (0-1.3); Monocytes % (auto) 14.7 % (0.0-12.0); Neutrophils # (auto) 2.3 10 ^3/uL (1.6-8.6); Nucleated Red Blood Cells % 0.1 %; Platelet Count (auto) 168 10^3/uL (140-450); Red Blood Cells 3.96 10^6/uL (4.0-5.20); Red Cell Distribution Width 13.3 % (11.8-14.3); White Blood Cell 3.6 10^3/uL (4.4-10.8)
[2024-09-20 07:22] LABS: Anion Gap 8 (5-15)
[2024-09-20 07:24] LABS: Alanine Aminotransferase 13 U/L (7-40); Albumin 4.5 g/dL (3.2-4.8); Alkaline Phosphatase 48 U/L (46-116); Aspartate Aminotransferase 24 U/L (13-40); Bilirubin, Total 0.5 mg/dL (0.2-1.0); Blood Urea Nitrogen 30 mg/dL (9-23); Calcium 9.9 mg/dL (8.7-10.4); Carbon Dioxide 25 mmol/L (20-31); Glucose 84 mg/dL (74-106); Sodium 132 mmol/L (136-145); Total Protein 7.7 g/dL (5.7-8.2)
--- NOTE | 2024-09-20 14:49 | DVHPN2 ---
Reviewed: Care Plan, H&P, Labs, Medications, Previous Orders, Radiology Changes from previous H/P or p: No Changes Objective Vitals Vital Signs Date Time Temp Pulse Resp B/P (MAP) Pulse Ox O2 Delivery O2 Flow Rate FiO2 09/20/24 11:40 94 Nasal Cannula 3.0 09/20/24 11:40 32 09/20/24 09:00 98.1 82 16 122/70 (87) 98.1 Intake/Output Intake and Output 09/20/24 07:00 Intake Total 1550 ml Balance 1550 ml Intake Oral 500 ml IV Total 1050 ml # Voids 8 # Bowel Movements 2 Medications Current Medications Medications Dose Ordered Sig/Amrit Route Start Time Stop Time Status Last Admin Dose Admin Nitroglycerin 0.4 mg Q5MINP PRN SL 09/16/24 00:00 Morphine Sulfate 2 mg Q30M PRN IV 09/16/24 00:00 Ceftriaxone Sodium 50 ml @ 100 mls/hr Q24H IV 09/16/24 23:00 09/19/24 22:24 100 MLS/HR Azithromycin 250 ml @ 125 mls/hr DAILY IV 09/16/24 10:00 09/20/24 09:08 125 MLS/HR Albuterol 2.5 mg Q6HPRN PRN NEB 09/16/24 00:15 Temazepam 15 mg QHSP PRN PO 09/16/24 00:15 Ondansetron HCl 4 mg Q4HP PRN IV 09/16/24 00:15 Enoxaparin Sodium 40 mg DAILY SC 09/16/24 10:00 09/20/24 09:07 40 MG Acetaminophen 650 mg Q6HP PRN PO 09/16/24 00:15 Zinc Sulfate 220 mg DAILY PO 09/17/24 10:00 09/20/24 09:08 220 MG Ascorbic Acid 500 mg BID PO 09/16/24 22:00 09/20/24 09:08 500 MG Cholecalciferol 4,000 unit DAILY PO 09/17/24 10:00 09/20/24 09:08 4,000 UNIT Pantoprazole Sodium 40 mg DAILY IV 09/17/24 10:00 09/20/24 09:07 40 MG Urea 15 gm TID PO 09/17/24 14:00 09/20/24 14:14 15 GM Laboratory Results Laboratory Tests 09/20/24 05:46 Chemistry Test 09/20/24 05:46 Albumin 4.5 g/dL (3.2-4.8) Calcium Level 9.9 mg/dL (8.7-10.4) Total Protein 7.7 g/dL (5.7-8.2) LFT Test 09/20/24 05:46 Alanine Aminotransferase (ALT) 13 U/L (7-40) Alkaline Phosphatase 48 U/L (46-116) Aspartate Amino Transferase (AST) 24 U/L (13-40) Total Bilirubin 0.5 mg/dL (0.2-1.0) Urinalysis Test 09/16/24 17:30 Urine Color Light-yellow (Yellow) Urine Clarity Clear (Clear) Urine pH 5.5 (5.0-9.0) Urine Specific [place] 1.024 (1.001-1.035) Urine Protein Trace (Negative) H Urine Ketones 2+ (Negative) H Urine Blood Negative /uL (Negative) Urine Nitrite Negative (Negative) Urine Bilirubin Negative (Negative) Urine Urobilinogen Normal mg/dL (Negative) Urine Leukocyte Esterase Negative /uL (Negative) Urine RBC 2 /hpf (0 - 4) Urine Microscopic WBC 3 /HPF (0-5) Urine Squamous Epithelial Cells Few /hpf (<5) Urine Bacteria None seen /hpf (None Seen) Urine Mucus Few (None Seen) Urine Osmolality 766 mOsm/kg Urine Creatinine 141.92 mg/dL (30.0-125.0) H Urine Protein/Creatinine Ratio 0.32 Urine Sodium 71 mmol/L (40-220) Urine Glucose Normal mg/dL (Normal) Urine Total Protein 44.9 mg/dL (1-14) H Microbiology Microbiology Date/Time Source Procedure Growth Status 09/15/24 21:45 Blood Blood Culture - Preliminary NO GROWTH AFTER 72 HOURS OF INCUBATION. 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 Garzon appreciated, sodium improved to 132 Time spent 55 minutes Patient is full code Blood cultures negative Prognosis poor Plan discussed with: Patient Date of Service: Sep 20, 2024 Billing Provider: LEATHA OLIVERA MD Common Visit Codes: [id number] INP/OBS CARE(HIGH) LEATHA OLIVERA MD Sep 20, 2024 14:49
--- NOTE | 2024-09-20 15:05 | DVHDS2 ---
Discharge Summary Date of Admission Sep 15, 2024 at 23:55 Date of Discharge: Sep 20, 2024 Admitting Diagnosis Shortness of breaths Wounds: None Labs/Diagnostic Data: Laboratory Results Test 09/20/24 05:46 09/16/24 17:30 09/16/24 05:36 09/15/24 23:23 White Blood Count 3.6 10^3/uL (4.4-10.8) Red Blood Count 3.96 10^6/uL (4.0-5.20) Hemoglobin 12.5 g/dL (12.2-16.2) Hematocrit 37.9 % (36.0-46.0) Mean Corpuscular Volume 95.5 fL (80.0-100.0) Mean Corpuscular Hemoglobin 31.6 pg (28.0-32.0) Mean Corpuscular Hemoglobin Concent 33.0 g/dL (32.0-36.0) Red Cell Distribution Width 13.3 % (11.8-14.3) Platelet Count 168 10^3/uL (140-450) Mean Platelet Volume 7.9 fL (6.9-10.8) Neutrophils (%) (Auto) 62.0 % (37.0-80.0) Lymphocytes (%) (Auto) 21.3 % (10.0-50.0) Monocytes (%) (Auto) 14.7 % (0.0-12.0) Eosinophils (%) (Auto) 1.6 % (0.0-7.0) Basophils (%) (Auto) 0.4 % (0.0-2.0) Neutrophils # (Auto) 2.3 10 ^3/uL (1.6-8.6) Lymphocytes # (Auto) 0.8 10 ^3/uL (0.4-5.4) Monocytes # (Auto) 0.5 10 ^3/uL (0-1.3) Eosinophils # (Auto) 0.1 10 ^3/uL (0-0.8) Basophils # (Auto) 0 10 ^3/uL (0-0.2) Nucleated Red Blood Cells 0.1 % Sodium Level 132 mmol/L (136-145) Potassium Level 4.0 mmol/L (3.5-5.1) Chloride Level 99 mmol/L (98-107) Carbon Dioxide Level 25 mmol/L (20-31) Anion Gap 8 (5-15) Blood Urea Nitrogen 30 mg/dL (9-23) Creatinine 0.79 mg/dL (0.550-1.02) Glomerular Filtration Rate Calc 81 mL/min (>90) BUN/Creatinine Ratio 38.0 (10.0-20.0) Serum Glucose 84 mg/dL (74-106) Calcium Level 9.9 mg/dL (8.7-10.4) Total Bilirubin 0.5 mg/dL (0.2-1.0) Aspartate Amino Transferase (AST) 24 U/L (13-40) Alanine Aminotransferase (ALT) 13 U/L (7-40) Alkaline Phosphatase 48 U/L (46-116) Lactate Dehydrogenase 196 U/L (120-246) Total Protein 7.7 g/dL (5.7-8.2) Albumin 4.5 g/dL (3.2-4.8) Urine Color Light-yellow (Yellow) Urine Clarity Clear (Clear) Urine pH 5.5 (5.0-9.0) Urine Specific [place] 1.024 (1.001-1.035) Urine Protein Trace (Negative) Urine Ketones 2+ (Negative) Urine Blood Negative /uL (Negative) Urine Nitrite Negative (Negative) Urine Bilirubin Negative (Negative) Urine Urobilinogen Normal mg/dL (Negative) Urine Leukocyte Esterase Negative /uL (Negative) Urine RBC 2 /hpf (0 - 4) Urine Microscopic WBC 3 /HPF (0-5) Urine Squamous Epithelial Cells Few /hpf (<5) Urine Bacteria None seen /hpf (None Seen) Urine Mucus Few (None Seen) Urine Osmolality 766 mOsm/kg Urine Creatinine 141.92 mg/dL (30.0-125.0) Urine Protein/Creatinine Ratio 0.32 Urine Sodium 71 mmol/L (40-220) Urine Glucose Normal mg/dL (Normal) Urine Total Protein 44.9 mg/dL (1-14) Phosphorus Level 2.5 mg/dL (2.4-5.1) Magnesium Level 1.7 mg/dL (1.6-2.6) Prothrombin Time 10.3 sec (9.3-11.8) Prothrombin Time INR 0.97 (0.9-1.15) Activated Partial Thromboplast Time 27.6 SEC (24.5-34.5) D-Dimer, Quantitative 0.77 mg/L FEU (0.0-0.49) Test 09/15/24 21:45 09/15/24 21:30 Lactic Acid Level 0.7 mmol/L (0.4-2.0) Troponin I High Sensitivity 3 ng/L (</=34) C-Reactive Protein High Sensitivity 0.17 mg/dL (<1.0) B-Type Natriuretic Peptide 100.30 pg/mL (0-100) Thyroid Stimulating Hormone (TSH) 1.46 uIU/mL (0.55-4.78) Influenza Type A Antigen Negative (Negative) Influenza Type B Antigen Negative (Negative) SARS-CoV-2 Antigen (Rapid) Positive (NEGATIVE) Other Laboratory Tests 09/20/24 05:46 Brief Hx & Hospital Course: 69-year-old female with a history of breast cancer spread to the lungs history of hepatitis-B history of left mastectomy came in complaining of shortness of breaths found to have COVID positive pneumonia treated with the Rocephin azithromycin zinc vitamin-C vitamin D3. Sodium was low 115 due to SIADH seen by Nephrology Dr. Garzon. Patient has significantly improved sodium is 132 at the time of discharge. Wants to go home today discharged home. 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 Garzon appreciated, sodium improved to 132 Discharge Disposition: Home Discharge Instruct/Medications Diet: Regular Activity: Light activity Follow Up/Referral: FOLLOW UP WITH YOUR PRIMARY Medications: AZITHROMYCIN ZINC VITAMIN-C VITAMIN D3 TRANSMITTED TO PHARMACY 39 (TIME TAKEN FOR DISCHARGE SUMMARY 39 MINUTES) Discharge Statement: "Patient was advised to return to the ER or call 911 if any headaches, dizziness, shortness of breath, chest pain, abdominal pain, bleeding, fevers, or worsening of medical condition. Patient was counseled about treatment plan, medications, possible side effects, patientverbalized understanding. All questions were answered to the best of my ability. 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 Garzon appreciated, sodium improved to 132 Date of Service: Sep 20, 2024 Billing Provider: LEATHA OLIVERA MD Common Visit Codes: [id number] DISCH DAY >30min LEATHA OLIVERA MD Sep 20, 2024 15:04
[2024-09-20] MEDS ORDERED: CHOL200031 PO (15:07)
[2024-09-20] MEDS ORDERED: AZIT500T66 PO (15:07)
[2024-09-20] MEDS ORDERED: ZINC220C10 PO (15:07)
[2024-09-20] MEDS ORDERED: ASCO500C49 PO (15:07)
== END 2024-09-20 16:15 | disposition home or self-care (01) | DRG 177 ==
LOC: EDBD 17:59 → ER 18:12 → TELE 23:55 → TELE-EAST 09-16 21:37
PROVIDERS: ADMIT Family Medicine; ATTEND Family Medicine
DX: U07.1 COVID-19 (principal); J12.82 Pneumonia due to coronavirus disease 2019; J96.01 Acute respiratory failure with hypoxia; D61.818 Other pancytopenia; E22.2 Syndrome of inappropriate secretion of antidiuretic hormone; D70.1 Agranulocytosis secondary to cancer chemotherapy; Z85.3 Personal history of malignant neoplasm of breast; Z90.12 Acquired absence of left breast and nipple; Z92.3 Personal history of irradiation; Z85.118 Personal history of other malignant neoplasm of bronchus and lung; Z80.3 Family history of malignant neoplasm of breast; Z79.899 Other long term (current) drug therapy; Z88.8 Allergy status to other drugs, medicaments and biological substances
CPT/HCPCS: 36415; 71045; 80048; 80053; 81001; 82570; 83605; 83615; 83735; 83880; 83935; 84100; 84156; 84295; 84300; 84443; 84484; 85025; 85379; 85610; 85730; 86141; 87040; 87426; 87804; 93005; 96365; G0378; J2470